=== PATIENT | female | born 1980 | race Caucasian/White ===

== ENCOUNTER 2016-08-20 19:12 | Emergency (ER) | payer OTHER ==
[~2016-08-20] VITALS: Ht 172.7 cm; Wt 70.3 kg
[2016-08-20] MEDS ORDERED: RHO (D) Immune Globulin 1500 Units IM ONE ×2 (20:30)
[2016-08-20 21:19] LABS: BASOPHILS % (AUTO) 0.7 % (0.0-2.0); EOSINOPHILS % (AUTO) 0.7 % (0.0-3.0); LYMPHOCYTES % (AUTO) 20.6 % (20.0-45.0); MEAN CORPUSCULAR HEMOGLOBIN 29.9 PG (27.0-31.0); MEAN CORPUSCULAR VOLUME 91 FL (80-99); MEAN PLATELET VOLUME 6.6 FL (6.5-10.1); MONOCYTES % (AUTO) 6.5 % (1.0-10.0); NEUTROPHILS % (AUTO) 71.5 % (45.0-75.0); PLATELET COUNT 207 K/UL (150-450); RED BLOOD COUNT 4.26 M/UL (4.20-5.40); RED CELL DISTRIBUTION WIDTH 11.9 % (11.6-14.8); WHITE BLOOD COUNT 8.5 K/UL (4.8-10.8)
[2016-08-21 00:54] VITALS: BP 138/83
--- NOTE | 2016-08-21 00:54 | Emergency Room Report ---
History of Present Illness General Chief Complaint: Complications Source: Patient Present Illness HPI The patient is a 36-year-old female who presented after increased vaginal bleeding. Patient had initially a small amount of bleeding yesterday which had increased to 2 similar to her. The patient has not been passing tissue. She denied dizziness or lightheadedness. Allergies: Coded Allergies: BACITRACIN (Verified Allergy, Unknown, 08/20/16) CINNAMON (Verified Allergy, Unknown, 08/20/16) COCONUT (Verified Allergy, Unknown, 08/20/16) METRONIDAZOLE (Verified Allergy, Unknown, 08/20/16) NEOMYCIN (Verified Allergy, Unknown, 08/20/16) Patient History Past Medical History: see triage record Last Menstrual Period: 06/17/2016 Now: Yes : 1 Para: 0 Reviewed Nursing Documentation: PMH: Agreed, PSxH: Agreed Nursing Documentation-PMH Past Medical History: No Stated History Review of Systems All Other Systems: negative except mentioned in HPI Physical Exam Vital Signs Date Time Temp Pulse Resp B/P Pulse Ox O2 Delivery O2 Flow Rate FiO2 08/20/16 19:29 98.2 127 16 138/83 98 Room Air Sp02 EP Interpretation: reviewed, normal General Appearance: normal inspection, well appearing, no apparent distress, alert, GCS 15 Head: normocephalic, atraumatic ENT: normal ENT inspection, hearing grossly normal, normal voice Neck: normal inspection, full range of motion, supple, no bony tend Respiratory: normal inspection, lungs clear, normal breath sounds, no respiratory distress, no retraction, no wheezing Cardiovascular #1: regular rate, rhythm, no edema Gastrointestinal: normal inspection, normal bowel sounds, non tender, soft, no guarding, no hernia Genitourinary: no CVA tenderness Musculoskeletal: normal inspection, back normal, normal range of motion Neurologic: normal inspection, alert, oriented x3, responsive, ship runner III-XII nml as tested, speech normal Psychiatric: normal inspection, judgement/insight normal, mood/affect normal Skin: normal inspection, normal color, no rash Medical Decision Making Diagnostic Impression: Primary Impression: Spontaneous ER Course Patient was noted to have a small amount of bleeding initially. Patient was noted to have ultrasound with some heterogeneous material in the uterus. There was no evidence of ectopic however the left ovary could not be visualized. Which cannot exclude ectopic. The there is no free fluid noted the abdomen. This may represent early The patient was advised of ultrasound findings. A quantitative hCG was noted to be markedly elevated. Given ultrasound findings the patient's clinical presentation as well as likely to be a spontaneous . Patient was noted to have the no pain in the had the been approximately 8 weeks . Patient was advised followup in 2 days for repeat quantitative hCG she is advised to return if she began having increased abdominal pain or dizziness or other concerns. Labs Test 08/20/16 19:57 08/20/16 20:41 Urine HCG, Qualitative Positive White Blood Count 8.5 K/UL (4.8-10.8) Red Blood Count 4.26 M/UL (4.20-5.40) Hemoglobin 12.7 G/DL (12.0-16.0) Hematocrit 38.6 % (37.0-47.0) Mean Corpuscular Volume 91 FL (80-99) Mean Corpuscular Hemoglobin 29.9 PG (27.0-31.0) Mean Corpuscular Hemoglobin Concent 33.0 G/DL (32.0-36.0) Red Cell Distribution Width 11.9 % (11.6-14.8) Platelet Count 207 K/UL (150-450) Mean Platelet Volume 6.6 FL (6.5-10.1) Neutrophils (%) (Auto) 71.5 % (45.0-75.0) Lymphocytes (%) (Auto) 20.6 % (20.0-45.0) Monocytes (%) (Auto) 6.5 % (1.0-10.0) Eosinophils (%) (Auto) 0.7 % (0.0-3.0) Basophils (%) (Auto) 0.7 % (0.0-2.0) Human Chorionic Gonadotropin, Quant 94425 mIU/mL Last Vital Signs Date Time Temp Pulse Resp B/P Pulse Ox O2 Delivery O2 Flow Rate FiO2 08/20/16 19:29 98.2 127 16 138/83 98 Room Air Status: improved Disposition: HOME, SELF-CARE Condition: Stable Patient Instructions: Miscarriage Esvin Winston Aug 21, 2016 00:54
--- NOTE | 2016-08-23 08:34 | Diagnostic Imaging Report ---
Indication: 36-year-old female with bleeding with reported beta hCG of 28,000. Technique: Transabdominal and endovaginal pelvic ultrasound. Comparison: None Findings: Uterus measures 9.6 x 5.8 cm. The endometrial echo complex is heterogeneous and thickened measuring up to 1.9 cm in thickness. No intrauterine is identified. Right ovary is poorly visualized grossly measuring 2.9 x 1.9 cm. Left ovary is not seen. There is no free pelvic fluid. Impression: Heterogeneous thickening of the endometrial echo complex measuring up to 1.9 cm. No intrauterine identified. Findings could represent a spontaneous with retained products of conception not excluded. In the absence of a documented intrauterine , occult ectopic cannot be excluded. Clinical/laboratory correlation recommended. Repeat imaging can be performed as clinically appropriate. The above report is concordant with preliminary reading by [facility].
== END 2016-08-21 00:56 | disposition home or self-care (01) ==
LOC: EMR 19:56
DX: O03.9 Complete or unspecified spontaneous abortion without complication (principal); O09.511 Supervision of elderly primigravida, first trimester; Z88.1 Allergy status to other antibiotic agents; Z91.018 Allergy to other foods
CPT/HCPCS: 36415; 76856; 81025; 84702; 85025; 86900; 86901; 99283

== ENCOUNTER 2017-10-04 15:25 | Inpatient (IN) | payer OTHER ==
[~2017-10-04] VITALS: Ht 172.7 cm; Wt 70.3 kg
[2017-10-04 15:35] VITALS: BP 132/74
--- NOTE | 2017-10-04 15:51 | Emergency Room Report ---
History of Present Illness General Chief Complaint: Abdominal Pain Source: Patient Present Illness HPI 37-year-old female, p/w epigastric abd pain nausea and vomiting for 10 days Patient states pain started gradually , localized to epigastric area, non radiating, burning in nature, intermittent. States that she has also had bilateral upper back pain. Also noticed that she's had some gross hematuria 10 days ago. But denies any dysuria. No relieving or exacerbating factors. denies chronic NSAID use. Pt reports n/v, 1 episode of nbnb vomiting per day, denies diarrhea. Denies black or bloody stools. Denies fever, chills. No hx of abdominal surgeries. No hx of endoscopies/colonoscopies. Patient states that she gave 2 months ago, uneventful , normal spontaneous vaginal delivery. No complications. Allergies: Coded Allergies: BACITRACIN (Verified Allergy, Unknown, 08/20/16) CINNAMON (Verified Allergy, Unknown, 08/20/16) COCONUT (Verified Allergy, Unknown, 08/20/16) METRONIDAZOLE (Verified Allergy, Unknown, 08/20/16) NEOMYCIN (Verified Allergy, Unknown, 08/20/16) Patient History Past Medical History: see triage record Past Surgical History: none Pertinent Family History: none Last Menstrual Period: 07/24/17 delivered the baby Reviewed Nursing Documentation: PMH: Agreed; PSxH: Agreed Nursing Documentation-PMH Past Medical History: No Stated History Review of Systems All Other Systems: negative except mentioned in HPI Physical Exam Vital Signs Date Time Temp Pulse Resp B/P (MAP) Pulse Ox O2 Delivery O2 Flow Rate FiO2 10/04/17 15:29 98.1 86 18 140/82 98 Room Air 98.1 Sp02 EP Interpretation: reviewed, normal General Appearance: alert, GCS 15, non-toxic, mild distress Head: normocephalic, atraumatic Eyes: bilateral eye normal inspection, bilateral eye PERRL, bilateral eye EOMI ENT: normal ENT inspection, normal pharynx, normal voice, moist mucus membranes Neck: normal inspection, full range of motion, supple Respiratory: normal inspection, lungs clear, normal breath sounds, no respiratory distress, no retraction, no wheezing, speaking full sentences, chest symmetrical Cardiovascular #1: normal inspection, regular rate, rhythm, normal capillary refill Cardiovascular #2: 2+ radial (R), 2+ radial (L) Gastrointestinal: other - Mild epigastric tenderness, Roger sign is negative, no CVA tenderness bilaterally. No bilateral lower quadrant tenderness. Musculoskeletal: normal inspection, back normal, normal range of motion, non- tender Neurologic: normal inspection, alert, oriented x3, responsive, motor strength/ tone normal, sensory intact, normal gait, speech normal Psychiatric: normal inspection, judgement/insight normal, memory normal Skin: normal inspection, normal color, no rash, warm/dry, well hydrated, normal turgor Medical Decision Making Diagnostic Impression: Primary Impression: Intractable nausea and vomiting Additional Impressions: Pancreatitis Acute gallstone pancreatitis ER Course 37-year-old female nausea vomiting and epigastric pain for 10 days Differential Diagnosis: Gastritis, gastroenteritis, cardiac, UTI/pyelo Abdomen is benign aside from mild epigastric tenderness. Plan: Basic labs, ua, ekg Pepcid, maalox, pain control, IVF CT abdopelvis ER course: Patient has remained stable during ED stay. Initial blood pressure was systolic 140, spontaneously improved to 130 She has remained awake and alert, not in acute distress, morphine was offered for her abdominal pain but patient refused She was given fluids Urine showing 2+ protein, also elevated LFTs, elevated lipase Possible diagnosis of pancreatitis versus preeclampsia I consulted with SENIOR ADULTS DIRECTOR doctor García: He said that preeclampsia/help syndrome is extremely with rare with this many weeks . Especially with the elevated lipase. Regardless it would mostly just be supportive management at this time. +gallstone pancreatitis Dr Boone made aware of patients case Also told Dr Jessica from GI Disposition: Patient is to be admitted to TELE DW Dr Jones Please note that this Emergency Department Report was dictated using [employer] enameling supervisor technology software, occasionally this can lead to erroneous entry secondary to interpretation by the dictation equipment EKG Diagnostic Results EP Interpretation: Yes Rate: normal Rhythm: NSR ST Segments: No acute changes ASA given to patient: No Laboratory Tests Test 10/04/17 15:37 10/04/17 15:45 Urine Color Brown Urine Appearance Slightly cloudy Urine pH 7 (4.5-8.0) Urine Specific [place] 1.005 (1.005-1.035) Urine Protein 2+ (NEGATIVE) H Urine Glucose (UA) Negative (NEGATIVE) Urine Ketones 4+ (NEGATIVE) H Urine Occult Blood 2+ (NEGATIVE) H Urine Nitrite Negative (NEGATIVE) Urine Bilirubin 3+ (NEGATIVE) H Urine Ictotest Positive Urine Urobilinogen 4 MG/DL (0.0-1.0) H Urine Leukocyte Esterase 2+ (NEGATIVE) H Urine RBC 0-2 /HPF (0 - 2) Urine WBC 2-4 /HPF (0 - 2) Urine Squamous Epithelial Cells Moderate /LPF (NONE/OCC) H Urine Bacteria Occasional /HPF (NONE) Urine HCG, Qualitative Negative (NEGATIVE) White Blood Count 6.7 K/UL (4.8-10.8) Red Blood Count 4.61 M/UL (4.20-5.40) Hemoglobin 13.1 G/DL (12.0-16.0) Hematocrit 40.1 % (37.0-47.0) Mean Corpuscular Volume 87 FL (80-99) Mean Corpuscular Hemoglobin 28.5 PG (27.0-31.0) Mean Corpuscular Hemoglobin Concent 32.8 G/DL (32.0-36.0) Red Cell Distribution Width 13.8 % (11.6-14.8) Platelet Count 236 K/UL (150-450) Mean Platelet Volume 8.0 FL (6.5-10.1) Neutrophils (%) (Auto) 73.7 % (45.0-75.0) Lymphocytes (%) (Auto) 18.6 % (20.0-45.0) L Monocytes (%) (Auto) 6.6 % (1.0-10.0) Eosinophils (%) (Auto) 0.4 % (0.0-3.0) Basophils (%) (Auto) 0.7 % (0.0-2.0) Sodium Level 137 MMOL/L (136-145) Potassium Level 3.8 MMOL/L (3.5-5.1) Chloride Level 102 MMOL/L (98-107) Carbon Dioxide Level 24 MMOL/L (21-32) Anion Gap 11 mmol/L (5-15) Blood Urea Nitrogen 7 mg/dL (7-18) Creatinine 0.8 MG/DL (0.55-1.30) Estimate Glomerular Filtration Rate > 60 mL/min (>60) Glucose Level 109 MG/DL (74-106) H Calcium Level 9.5 MG/DL (8.5-10.1) Total Bilirubin 7.4 MG/DL (0.2-1.0) H Direct Bilirubin 6.0 MG/DL (0.0-0.3) H Aspartate Amino Transferase (AST) 185 U/L (15-37) H Alanine Aminotransferase (ALT) 397 U/L (12-78) H Alkaline Phosphatase 251 U/L (46-116) H Total Protein 8.5 G/DL (6.4-8.2) H Albumin 3.7 G/DL (3.4-5.0) Globulin 4.8 g/dL Albumin/Globulin Ratio 0.8 (1.0-2.7) L Lipase 2804 U/L (73-393) H CT/MRI/US Diagnostic Results CT/MRI/US Diagnostic Results : Impression Sludge and stones are present in the gallbladder lumen. No gallbladder wall thickening or pericholecystic fluid. Sonographic Roger sign is negative. Dilated common bile duct measuring up to 8 mm. Mild diffusely increased hepatic echogenicity suggestive of diffuse hepatic steatosis. Spleen and kidneys are unremarkable. No free fluid Last Vital Signs Date Time Temp Pulse Resp B/P (MAP) Pulse Ox O2 Delivery O2 Flow Rate FiO2 10/04/17 15:29 98.1 86 18 140/82 98 Room Air 98.1 Disposition: ADMITTED INPATIENT Condition: Serious Patient Instructions: Abdominal Pain, Adult Reggie Edgar M.D. October 04, 2017 15:51
[2017-10-04 16:02] LABS: BASOPHILS % (AUTO) 0.7 % (0.0-2.0); EOSINOPHILS % (AUTO) 0.4 % (0.0-3.0); HEMATOCRIT 40.1 % (37.0-47.0); HEMOGLOBIN 13.1 G/DL (12.0-16.0); LYMPHOCYTES % (AUTO) 18.6 % (20.0-45.0); MEAN CORPUSCULAR VOLUME 87 FL (80-99); MONOCYTES % (AUTO) 6.6 % (1.0-10.0); NEUTROPHILS % (AUTO) 73.7 % (45.0-75.0); PLATELET COUNT 236 K/UL (150-450); RED BLOOD COUNT 4.61 M/UL (4.20-5.40); RED CELL DISTRIBUTION WIDTH 13.8 % (11.6-14.8); WHITE BLOOD COUNT 6.7 K/UL (4.8-10.8)
[2017-10-04 16:05] LABS: APPEARANCE,URINE SLIGHTLY CLOUDY; BILIRUBIN, URINE 3+ (NEGATIVE); COLOR,URINE BROWN; GLUCOSE, URINE (UA) NEGATIVE (NEGATIVE); KETONES,URINE 4+ (NEGATIVE); LEUKOCYTE ESTERASE ,URINE 2+ (NEGATIVE); NITRITE,URINE NEGATIVE (NEGATIVE); PH,URINE 7 (4.5-8.0); PROTEIN,URINE 2+ (NEGATIVE); UROBILINOGEN,URINE 4 MG/DL (0.0-1.0)
[2017-10-04 16:10] LABS: ANION GAP 11 mmol/L (5-15); BLOOD UREA NITROGEN 7 mg/dL (7-18); CALCIUM 9.5 MG/DL (8.5-10.1); CARBON DIOXIDE 24 MMOL/L (21-32); CHLORIDE 102 MMOL/L (98-107); CREATININE 0.8 MG/DL (0.55-1.30); POTASSIUM 3.8 MMOL/L (3.5-5.1); SODIUM 137 MMOL/L (136-145)
[2017-10-04 16:20] LABS: ALANINE AMINOTRANSFERASE 397 U/L (12-78); ALBUMIN 3.7 G/DL (3.4-5.0); ALBUMIN/GLOBULIN RATIO 0.8 (1.0-2.7); ALKALINE PHOSPHATASE 251 U/L (46-116); ASPARTATE AMINO TRANSFERASE 185 U/L (15-37); BILIRUBIN,TOTAL 7.4 MG/DL (0.2-1.0)
[2017-10-04] MEDS ORDERED: Morphine Sulfate 4mg/ml Inj ONE (16:27)
[2017-10-04] MEDS ORDERED: Morphine Sulfate 4mg/ml Inj IVP ONE (16:30)
[2017-10-04] MEDS ORDERED: Labetalol 5mg/ml 20ml vial IV ONE (16:45)
[2017-10-04 16:59] VITALS: BP 118/61
[2017-10-04] MEDS ORDERED: YASMIN 28 TABL1 EACH ORAL (17:23)
[2017-10-04] MEDS ORDERED: ADVIL200 M2 ORAL (17:23)
--- NOTE | 2017-10-04 18:33 | Consultation ---
History of Present Illness General Date patient seen: October 04, 2017 Chief Complaint: Abdominal Pain Reason for Consultation: gallstone pancreatitis Present Illness HPI 37 year old otherwise healthy female who is 10 weeks post presented to ED with complaints of worsening abdominal pain. States that she has had some abdominal discomfort since delivery but over the past few days she has noted some worsening upper abdominal pain. pain currently epigastric with radiation to the upper back. pain cramping can 8/10 at times. came in to ED for evaluation today and noted to have elevated t bili/d bili as well as elevated lipase indicative of likely gallstone pancreatitis. otherwise well and no complaints. baby doing okay and at home with grandmother and aunt. surgery called to evaluate for abdominal pain/gallstone pancreatitis. Allergies: Coded Allergies: BACITRACIN (Verified Allergy, Unknown, 08/20/16) CINNAMON (Verified Allergy, Unknown, 08/20/16) COCONUT (Verified Allergy, Unknown, 08/20/16) METRONIDAZOLE (Verified Allergy, Unknown, 08/20/16) NEOMYCIN (Verified Allergy, Unknown, 08/20/16) Patient History History Provided By: Patient, Medical Record, PMD Healthcare decision maker Resuscitation status Advanced Directive on File Past Medical/Surgical History Past Medical/Surgical History: (1) Acute gallstone pancreatitis (2) Missed (3) Spontaneous (4) Preeclampsia (5) Pancreatitis (6) Intractable nausea and vomiting Review of Systems Constitutional: Denies: no symptoms, see HPI, chills, sweats, fever, malaise, weakness, other Eye: Denies: no symptoms, see HPI, eye pain, blurred vision, tearing, double vision, nose pain, nose congestion, acuity changes, discharge, other ENT: Denies: no symptoms, see HPI, ear pain, ear discharge, nose pain, nose congestion, throat pain, throat swelling, mouth pain, hearing loss, nasal discharge, other Respiratory: Denies: no symptoms, see HPI, cough, orthopnea, shortness of breath, stridor, wheezing, VALLE, sputum, other Cardiovascular: Denies: no symptoms, see HPI, chest pain, edema, palpitations, syncope, PND, other Gastrointestinal: Reports: abdominal pain Genitourinary: Denies: no symptoms, see HPI, discharge, dysuria, frequency, hematuria, pain, retention, incontinence, urgency, vag bleed/dc, other Musculoskeletal: Reports: back pain Skin: Denies: no symptoms, see HPI, rash, change in color, change in hair/nails , dryness, lesions, other Psychiatric: Denies: no symptoms, see HPI, prior hx, anxiety, depressed feelings, emotional problems, SI, HI, hallucinations, other Neurological: Denies: no symptoms, see HPI, headache, numbness, paresthesia, seizure, tingling, tremors, focal weakness, syncope, dizziness, other Endocrine: Denies: no symptoms, see HPI, excessive sweating, flushing, intolerance to temperature, increased thirst, increased urine, unexplained weight loss, other Hematologic/Lymphatic: Denies: no symptoms, see HPI, anemia, blood clots, easy bleeding, easy bruising, swollen glands, diathesis, other Physical Exam General Appearance: WD/WN, no apparent distress, alert Lines, tubes and drains: peripheral HEENT: mucous membranes moist, PERRL Neck: non-tender, normal alignment Respiratory/Chest: lungs clear, normal breath sounds, no respiratory distress, no accessory muscle use Cardiovascular/Chest: normal peripheral pulses, normal rate, regular rhythm Abdomen: normal bowel sounds, non tender, soft, no organomegaly, no mass Extremities: normal range of motion, non-tender Skin Exam: normal pigmentation Neurologic: alert, oriented x 3 Last 24 Hour Vital Signs Date Time Temp Pulse Resp B/P (MAP) Pulse Ox O2 Delivery O2 Flow Rate FiO2 10/04/17 16:59 98.6 81 18 118/61 98 Room Air 98.6 10/04/17 16:43 78 135/75 10/04/17 16:29 98.1 10/04/17 15:35 98.1 81 18 132/74 98 Room Air 98.1 10/04/17 15:29 98.1 86 18 140/82 98 Room Air 98.1 Laboratory Tests Test 10/04/17 15:37 10/04/17 15:45 Urine Color Brown Urine Appearance Slightly cloudy Urine pH 7 (4.5-8.0) Urine Specific [place] 1.005 (1.005-1.035) Urine Protein 2+ (NEGATIVE) H Urine Glucose (UA) Negative (NEGATIVE) Urine Ketones 4+ (NEGATIVE) H Urine Occult Blood 2+ (NEGATIVE) H Urine Nitrite Negative (NEGATIVE) Urine Bilirubin 3+ (NEGATIVE) H Urine Ictotest Positive Urine Urobilinogen 4 MG/DL (0.0-1.0) H Urine Leukocyte Esterase 2+ (NEGATIVE) H Urine RBC 0-2 /HPF (0 - 2) Urine WBC 2-4 /HPF (0 - 2) Urine Squamous Epithelial Cells Moderate /LPF (NONE/OCC) H Urine Bacteria Occasional /HPF (NONE) Urine HCG, Qualitative Negative (NEGATIVE) White Blood Count 6.7 K/UL (4.8-10.8) Red Blood Count 4.61 M/UL (4.20-5.40) Hemoglobin 13.1 G/DL (12.0-16.0) Hematocrit 40.1 % (37.0-47.0) Mean Corpuscular Volume 87 FL (80-99) Mean Corpuscular Hemoglobin 28.5 PG (27.0-31.0) Mean Corpuscular Hemoglobin Concent 32.8 G/DL (32.0-36.0) Red Cell Distribution Width 13.8 % (11.6-14.8) Platelet Count 236 K/UL (150-450) Mean Platelet Volume 8.0 FL (6.5-10.1) Neutrophils (%) (Auto) 73.7 % (45.0-75.0) Lymphocytes (%) (Auto) 18.6 % (20.0-45.0) L Monocytes (%) (Auto) 6.6 % (1.0-10.0) Eosinophils (%) (Auto) 0.4 % (0.0-3.0) Basophils (%) (Auto) 0.7 % (0.0-2.0) Sodium Level 137 MMOL/L (136-145) Potassium Level 3.8 MMOL/L (3.5-5.1) Chloride Level 102 MMOL/L (98-107) Carbon Dioxide Level 24 MMOL/L (21-32) Anion Gap 11 mmol/L (5-15) Blood Urea Nitrogen 7 mg/dL (7-18) Creatinine 0.8 MG/DL (0.55-1.30) Estimat Glomerular Filtration Rate > 60 mL/min (>60) Glucose Level 109 MG/DL (74-106) H Calcium Level 9.5 MG/DL (8.5-10.1) Total Bilirubin 7.4 MG/DL (0.2-1.0) H Direct Bilirubin 6.0 MG/DL (0.0-0.3) H Aspartate Amino Transf (AST/SGOT) 185 U/L (15-37) H Alanine Aminotransferase (ALT/SGPT) 397 U/L (12-78) H Alkaline Phosphatase 251 U/L (46-116) H Total Protein 8.5 G/DL (6.4-8.2) H Albumin 3.7 G/DL (3.4-5.0) Globulin 4.8 g/dL Albumin/Globulin Ratio 0.8 (1.0-2.7) L Lipase 2804 U/L (73-393) H Height (Feet): 5 Height (Inches): 8.00 Weight (Pounds): 155 Assessment/Plan Problem List: (1) Acute gallstone pancreatitis Assessment & Plan: 37 year old female with acute gallstone pancreatitis. afebrile, HD stable, no leukocytosis, elevated total and direct bilirubin, elevated LFT's and lipase. currently pain much improved. pending final radiological read -NPO -IV fluids -pending final radiological read -GI to evaluate for choledocholithiasis and possible need for ERCP -trend labs -recommend laparoscopic cholecystectomy during this admission once resolved. thank you for this consultation. will follow with recs. ICD Codes: K85.10 - Biliary acute pancreatitis without necrosis or infection SNOMED: [id number] Status: stable Espinoza Boone October 04, 2017 18:32
[2017-10-04 19:00] VITALS: BP 126/72
[2017-10-04 20:00] VITALS: BP 123/70
[2017-10-04] MEDS ORDERED: Mylanta II UD 30ml ORAL PRN (20:45)
[2017-10-04] MEDS ORDERED: NS w/KCl 20mEq 1,000 ML IV SCH (22:00)
[2017-10-04] MEDS ORDERED: Acetaminophen 500mg (ES) tab ORAL PRN (22:00)
[2017-10-04] MEDS: Piperacillin/Tazobactam 3.375 GM in D5W 110 ML IVPB SCH (23:42)
[2017-10-05] VITALS: BP_SYST 111; BP_SYST 123; BP_DIAS 61; BP_DIAS 70
[2017-10-05 04:00] VITALS: BP 114/68
[2017-10-05] MEDS: Piperacillin/Tazobactam 3.375 GM in D5W 110 ML IVPB SCH ×3 (05:26→23:23)
[2017-10-05 08:00] VITALS: BP 112/69
[2017-10-05 08:33] LABS: BASOPHILS % (AUTO) 0.7 % (0.0-2.0); EOSINOPHILS % (AUTO) 0.7 % (0.0-3.0); HEMATOCRIT 35.8 % (37.0-47.0); HEMOGLOBIN 11.8 G/DL (12.0-16.0); LYMPHOCYTES % (AUTO) 29.5 % (20.0-45.0); MEAN CORPUSCULAR VOLUME 88 FL (80-99); MONOCYTES % (AUTO) 6.2 % (1.0-10.0); NEUTROPHILS % (AUTO) 62.9 % (45.0-75.0); PLATELET COUNT 171 K/UL (150-450); RED BLOOD COUNT 4.05 M/UL (4.20-5.40); RED CELL DISTRIBUTION WIDTH 13.8 % (11.6-14.8); WHITE BLOOD COUNT 4.7 K/UL (4.8-10.8)
[2017-10-05 08:50] LABS: INR 0.9 (0.9-1.1)
[2017-10-05 09:12] LABS: ALANINE AMINOTRANSFERASE 291 U/L (12-78); ALBUMIN 2.9 G/DL (3.4-5.0); ALBUMIN/GLOBULIN RATIO 0.7 (1.0-2.7); ALKALINE PHOSPHATASE 205 U/L (46-116); AMYLASE 121 U/L (25-115); ANION GAP 10 mmol/L (5-15); ASPARTATE AMINO TRANSFERASE 102 U/L (15-37); BILIRUBIN,TOTAL 2.6 MG/DL (0.2-1.0); BLOOD UREA NITROGEN 9 mg/dL (7-18); CALCIUM 8.6 MG/DL (8.5-10.1); CARBON DIOXIDE 23 MMOL/L (21-32); CHLORIDE 105 MMOL/L (98-107); CHOLESTEROL 233 MG/DL (< 200); HDL CHOLESTEROL 116 MG/DL (40-60); SODIUM 138 MMOL/L (136-145); TRIGLYCERIDES 126 MG/DL (30-150)
[2017-10-05 09:14] LABS: BILIRUBIN,DIRECT 1.2 MG/DL (0.0-0.3)
[2017-10-05 09:37] LABS: PHOSPHORUS 4.2 MG/DL (2.5-4.9)
--- NOTE | 2017-10-05 10:33 | GI Initial Consult Note ---
History of Present Illness General Date patient seen: October 05, 2017 Time patient seen: 10:26 Reason for Hospitalization: Abdominal Pain Referring physician: SANDI NICHOLS Reason for Consultation: gallstone pancreatitis Present Illness HPI 37-year-old female, p/w epigastric abd pain nausea and vomiting for 10 days. Patient states pain started gradually, localized to epigastric area, non radiating, burning in nature, intermittent. States that she has also had bilateral upper back pain. Also noticed that she's had some gross hematuria 10 days ago. But denies any dysuria. No relieving or exacerbating factors. denies chronic NSAID use. Pt reports n/v, 1 episode of nbnb vomiting per day, denies diarrhea. Denies black or bloody stools. GI consulted for possible gallstone pancreatitis. Pt seen, awake A&Ox4 NAD with no active s/sx of N/V/D. Denies any pain at this time. Denies any significant medical history. Denies any use of ETOH, tobacco or drug use. Labs reviewed, presents with anemia, abnormal LFTs and elevated lipase. Abdominal U/S taken, results pending. No hx of abdominal surgeries. No hx of endoscopies/colonoscopies. Patient states that she gave 2 months ago, uneventful , normal spontaneous vaginal delivery. No complications. Med list reviewed/reconciled: Yes Allergies: Coded Allergies: BACITRACIN (Verified Allergy, Unknown, 08/20/16) CINNAMON (Verified Allergy, Unknown, 08/20/16) COCONUT (Verified Allergy, Unknown, 08/20/16) METRONIDAZOLE (Verified Allergy, Unknown, 08/20/16) NEOMYCIN (Verified Allergy, Unknown, 08/20/16) Patient History History Provided By: Patient, Medical Record PM Narrative Allergies: Coded Allergies: BACITRACIN (Verified Allergy, Unknown, 08/20/16) CINNAMON (Verified Allergy, Unknown, 08/20/16) COCONUT (Verified Allergy, Unknown, 08/20/16) METRONIDAZOLE (Verified Allergy, Unknown, 08/20/16) NEOMYCIN (Verified Allergy, Unknown, 08/20/16) Patient History Past Medical History: see triage record Past Surgical History: none Pertinent Family History: none Last Menstrual Period: 07/24/17 delivered the baby Reviewed Nursing Documentation: PMH: Agreed; PSxH: Agreed Nursing Documentation-PMH Past Medical History: No Stated History Social History: Denies: smoking, alcohol use, drug use, other Review of Systems All Other Systems: negative except mentioned in HPI Physical Exam Vital Signs Date Time Temp Pulse Resp B/P (MAP) Pulse Ox O2 Delivery O2 Flow Rate FiO2 10/04/17 15:29 98.1 86 18 140/82 98 Room Air 98.1 Sp02 EP Interpretation: reviewed, normal Labs Laboratory Tests Test 10/04/17 15:37 10/04/17 15:45 10/05/17 08:05 Urine Color Brown Urine Appearance Slightly cloudy Urine pH 7 (4.5-8.0) Urine Specific [place] 1.005 (1.005-1.035) Urine Protein 2+ (NEGATIVE) H Urine Glucose (UA) Negative (NEGATIVE) Urine Ketones 4+ (NEGATIVE) H Urine Occult Blood 2+ (NEGATIVE) H Urine Nitrite Negative (NEGATIVE) Urine Bilirubin 3+ (NEGATIVE) H Urine Ictotest Positive Urine Urobilinogen 4 MG/DL (0.0-1.0) H Urine Leukocyte Esterase 2+ (NEGATIVE) H Urine RBC 0-2 /HPF (0 - 2) Urine WBC 2-4 /HPF (0 - 2) Urine Squamous Epithelial Cells Moderate /LPF (NONE/OCC) H Urine Bacteria Occasional /HPF (NONE) Urine HCG, Qualitative Negative (NEGATIVE) White Blood Count 6.7 K/UL (4.8-10.8) 4.7 K/UL (4.8-10.8) L Red Blood Count 4.61 M/UL (4.20-5.40) 4.05 M/UL (4.20-5.40) L Hemoglobin 13.1 G/DL (12.0-16.0) 11.8 G/DL (12.0-16.0) L Hematocrit 40.1 % (37.0-47.0) 35.8 % (37.0-47.0) L Mean Corpuscular Volume 87 FL (80-99) 88 FL (80-99) Mean Corpuscular Hemoglobin 28.5 PG (27.0-31.0) 29.2 PG (27.0-31.0) Mean Corpuscular Hemoglobin Concent 32.8 G/DL (32.0-36.0) 33.1 G/DL (32.0-36.0) Red Cell Distribution Width 13.8 % (11.6-14.8) 13.8 % (11.6-14.8) Platelet Count 236 K/UL (150-450) 171 K/UL (150-450) Mean Platelet Volume 8.0 FL (6.5-10.1) 7.8 FL (6.5-10.1) Neutrophils (%) (Auto) 73.7 % (45.0-75.0) 62.9 % (45.0-75.0) Lymphocytes (%) (Auto) 18.6 % (20.0-45.0) L 29.5 % (20.0-45.0) Monocytes (%) (Auto) 6.6 % (1.0-10.0) 6.2 % (1.0-10.0) Eosinophils (%) (Auto) 0.4 % (0.0-3.0) 0.7 % (0.0-3.0) Basophils (%) (Auto) 0.7 % (0.0-2.0) 0.7 % (0.0-2.0) Sodium Level 137 MMOL/L (136-145) 138 MMOL/L (136-145) Potassium Level 3.8 MMOL/L (3.5-5.1) 4.0 MMOL/L (3.5-5.1) Chloride Level 102 MMOL/L (98-107) 105 MMOL/L (98-107) Carbon Dioxide Level 24 MMOL/L (21-32) 23 MMOL/L (21-32) Anion Gap 11 mmol/L (5-15) 10 mmol/L (5-15) Blood Urea Nitrogen 7 mg/dL (7-18) 9 mg/dL (7-18) Creatinine 0.8 MG/DL (0.55-1.30) 1.0 MG/DL (0.55-1.30) Estimat Glomerular Filtration Rate > 60 mL/min (>60) > 60 mL/min (>60) Glucose Level 109 MG/DL (74-106) H 94 MG/DL (74-106) Calcium Level 9.5 MG/DL (8.5-10.1) 8.6 MG/DL (8.5-10.1) Total Bilirubin 7.4 MG/DL (0.2-1.0) H 2.6 MG/DL (0.2-1.0) H Direct Bilirubin 6.0 MG/DL (0.0-0.3) H 1.2 MG/DL (0.0-0.3) H Aspartate Amino Transf (AST/SGOT) 185 U/L (15-37) H 102 U/L (15-37) H Alanine Aminotransferase (ALT/SGPT) 397 U/L (12-78) H 291 U/L (12-78) H Alkaline Phosphatase 251 U/L (46-116) H 205 U/L (46-116) H Total Protein 8.5 G/DL (6.4-8.2) H 6.9 G/DL (6.4-8.2) Albumin 3.7 G/DL (3.4-5.0) 2.9 G/DL (3.4-5.0) L Globulin 4.8 g/dL 4.0 g/dL Albumin/Globulin Ratio 0.8 (1.0-2.7) L 0.7 (1.0-2.7) L Lipase 2804 U/L (73-393) H 594 U/L (73-393) H Prothrombin Time 9.6 SEC (9.30-11.50) Prothromb Time International Ratio 0.9 (0.9-1.1) Activated Partial Thromboplast Time 28 SEC (23-33) Uric Acid 3.8 MG/DL (2.6-7.2) Phosphorus Level 4.2 MG/DL (2.5-4.9) Magnesium Level 2.0 MG/DL (1.8-2.4) Pro-B-Type Natriuretic Peptide 181 pg/mL (0-125) H Triglycerides Level 126 MG/DL (30-150) Cholesterol Level 233 MG/DL (< 200) H LDL Cholesterol 82 mg/dL (<100) HDL Cholesterol 116 MG/DL (40-60) H Cholesterol/HDL Ratio 2.0 (3.3-4.4) L Amylase Level 121 U/L (25-115) H Thyroid Stimulating Hormone (TSH) 1.212 uiU/mL (0.358-3.740) General Appearance: well appearing, no apparent distress, alert Head: normocephalic EENT: PERRL/EOMI, normal ENT inspection Neck: supple Respiratory: normal breath sounds, no respiratory distress Cardiovascular: normal rate Gastrointestinal: normal inspection, non tender, soft, normal bowel sounds, non -distended Rectal: deferred Genitourinary: no CVA tenderness Musculoskeletal: normal inspection, back normal Neurologic: normal inspection, alert, oriented x3, responsive Psychiatric: normal inspection, judgement/insight normal, memory normal Skin: normal inspection, normal color, no rash, warm/dry, palpation normal, well hydrated Lymphatic: normal inspection, no adenopathy Current Medications Current Medications Medications (Trade) Dose Ordered Sig/Jacob Route PRN Reason Start Time Stop Time Status Last Admin Dose Admin Acetaminophen (Tylenol) 500 mg Q6HR PRN ORAL Mild Pain/Temp > 100.5 10/04/17 22:00 11/03/17 21:59 Al Hydroxide/Mg Hydroxide (Mylanta II) 30 ml Q6H PRN ORAL dyspepsia 10/04/17 20:45 11/03/17 20:44 Dextrose (Dextrose 50%) 25 ml STAT PRN IV Hypoglycemia 10/04/17 20:45 11/03/17 20:44 Dextrose (Dextrose 50%) 25 ml STAT PRN IV Hypoglycemia 10/04/17 22:00 11/03/17 21:59 Dextrose (Dextrose 50%) 50 ml STAT PRN IV Hypoglycemia 10/04/17 20:45 11/03/17 20:44 Famotidine (Pepcid I.v.) 20 mg Q12HR IVP 10/04/17 22:00 11/03/17 21:59 10/05/17 08:22 Ondansetron HCl (Zofran) 4 mg Q6H PRN IVP Nausea & Vomiting 10/04/17 20:45 11/03/17 20:44 Piperacillin Sod/ Tazobactam Sod 3.375 gm/Dextrose 110 ml @ 27.5 mls/hr EVERY 8 HOURS IVPB 10/04/17 22:30 10/09/17 22:29 10/05/17 05:26 Sodium Chloride 1,000 ml @ 80 mls/hr [id number] IV 10/04/17 22:57 11/03/17 22:56 10/04/17 22:22 GI: Plan Problems: (1) Acute gallstone pancreatitis (2) Pancreatitis (3) Intractable nausea and vomiting Plan possible ERCP for choledocholithiasis and possible need for ERCP. pending abdominal U/S trend LFTs, lipase pain mgmt maintain NPO + IVFs fu labs Discussed with Dr. Jessica. Thank you for this patient referral, we will follow. The patient was seen and examined at bedside and all new and available data was reviewed in the patients chart. I agree with the above findings, impression and plan. (Patient seen earlier today. Signature stamp does not reflect patient encounter time.). - MD Barb Narvaez Anh Julius Horne October 05, 2017 10:33
[2017-10-05 12:00] VITALS: BP 110/72
--- NOTE | 2017-10-05 15:06 | General Surgery Progress Note ---
General Surgery-Progress Note Subjective Symptoms: improved, pain absent, passing flatus Additional Comments no acute events pain resolved. no n/v/f/c. comfortable. Objective Last 24 Hour Vital Signs Date Time Temp Pulse Resp B/P (MAP) Pulse Ox O2 Delivery O2 Flow Rate FiO2 10/05/17 12:00 97.7 68 18 110/72 97 Room Air 97.7 10/05/17 11:40 81 10/05/17 08:00 97.7 72 18 112/69 97 Room Air 97.7 10/05/17 07:26 63 10/05/17 04:00 97.7 84 18 114/68 97 Room Air 97.7 10/05/17 04:00 66 10/05/17 00:00 73 10/05/17 00:00 97.7 74 18 111/61 96 Room Air 97.7 10/04/17 21:07 71 10/04/17 20:00 99.0 80 20 123/70 99 Room Air 99.0 10/04/17 19:40 99.0 81 18 126/72 100 Room Air 99.0 10/04/17 19:00 99.0 81 18 126/72 100 Room Air 99.0 10/04/17 16:59 98.6 81 18 118/61 98 Room Air 98.6 10/04/17 16:43 78 135/75 10/04/17 16:29 98.1 10/04/17 15:35 98.1 81 18 132/74 98 Room Air 98.1 10/04/17 15:29 98.1 86 18 140/82 98 Room Air 98.1 I&O Intake and Output 10/04/17 10/05/17 19:00 07:00 Intake Total 80 ml Balance 80 ml Intake IV Total 80 ml # Voids 1 Drains: none Cardiovascular: RSR Respiratory: clear Abdomen: soft, flat, non-tender, present bowel sounds Extremities: no edema, no tenderness, no cyanosis Laboratory Tests Test 10/04/17 15:37 10/04/17 15:45 10/05/17 08:05 Urine Color Brown Urine Appearance Slightly cloudy Urine pH 7 (4.5-8.0) Urine Specific [place] 1.005 (1.005-1.035) Urine Protein 2+ (NEGATIVE) H Urine Glucose (UA) Negative (NEGATIVE) Urine Ketones 4+ (NEGATIVE) H Urine Occult Blood 2+ (NEGATIVE) H Urine Nitrite Negative (NEGATIVE) Urine Bilirubin 3+ (NEGATIVE) H Urine Ictotest Positive Urine Urobilinogen 4 MG/DL (0.0-1.0) H Urine Leukocyte Esterase 2+ (NEGATIVE) H Urine RBC 0-2 /HPF (0 - 2) Urine WBC 2-4 /HPF (0 - 2) Urine Squamous Epithelial Cells Moderate /LPF (NONE/OCC) H Urine Bacteria Occasional /HPF (NONE) Urine HCG, Qualitative Negative (NEGATIVE) White Blood Count 6.7 K/UL (4.8-10.8) 4.7 K/UL (4.8-10.8) L Red Blood Count 4.61 M/UL (4.20-5.40) 4.05 M/UL (4.20-5.40) L Hemoglobin 13.1 G/DL (12.0-16.0) 11.8 G/DL (12.0-16.0) L Hematocrit 40.1 % (37.0-47.0) 35.8 % (37.0-47.0) L Mean Corpuscular Volume 87 FL (80-99) 88 FL (80-99) Mean Corpuscular Hemoglobin 28.5 PG (27.0-31.0) 29.2 PG (27.0-31.0) Mean Corpuscular Hemoglobin Concent 32.8 G/DL (32.0-36.0) 33.1 G/DL (32.0-36.0) Red Cell Distribution Width 13.8 % (11.6-14.8) 13.8 % (11.6-14.8) Platelet Count 236 K/UL (150-450) 171 K/UL (150-450) Mean Platelet Volume 8.0 FL (6.5-10.1) 7.8 FL (6.5-10.1) Neutrophils (%) (Auto) 73.7 % (45.0-75.0) 62.9 % (45.0-75.0) Lymphocytes (%) (Auto) 18.6 % (20.0-45.0) L 29.5 % (20.0-45.0) Monocytes (%) (Auto) 6.6 % (1.0-10.0) 6.2 % (1.0-10.0) Eosinophils (%) (Auto) 0.4 % (0.0-3.0) 0.7 % (0.0-3.0) Basophils (%) (Auto) 0.7 % (0.0-2.0) 0.7 % (0.0-2.0) Sodium Level 137 MMOL/L (136-145) 138 MMOL/L (136-145) Potassium Level 3.8 MMOL/L (3.5-5.1) 4.0 MMOL/L (3.5-5.1) Chloride Level 102 MMOL/L (98-107) 105 MMOL/L (98-107) Carbon Dioxide Level 24 MMOL/L (21-32) 23 MMOL/L (21-32) Anion Gap 11 mmol/L (5-15) 10 mmol/L (5-15) Blood Urea Nitrogen 7 mg/dL (7-18) 9 mg/dL (7-18) Creatinine 0.8 MG/DL (0.55-1.30) 1.0 MG/DL (0.55-1.30) Estimat Glomerular Filtration Rate > 60 mL/min (>60) > 60 mL/min (>60) Glucose Level 109 MG/DL (74-106) H 94 MG/DL (74-106) Calcium Level 9.5 MG/DL (8.5-10.1) 8.6 MG/DL (8.5-10.1) Total Bilirubin 7.4 MG/DL (0.2-1.0) H 2.6 MG/DL (0.2-1.0) H Direct Bilirubin 6.0 MG/DL (0.0-0.3) H 1.2 MG/DL (0.0-0.3) H Aspartate Amino Transf (AST/SGOT) 185 U/L (15-37) H 102 U/L (15-37) H Alanine Aminotransferase (ALT/SGPT) 397 U/L (12-78) H 291 U/L (12-78) H Alkaline Phosphatase 251 U/L (46-116) H 205 U/L (46-116) H Total Protein 8.5 G/DL (6.4-8.2) H 6.9 G/DL (6.4-8.2) Albumin 3.7 G/DL (3.4-5.0) 2.9 G/DL (3.4-5.0) L Globulin 4.8 g/dL 4.0 g/dL Albumin/Globulin Ratio 0.8 (1.0-2.7) L 0.7 (1.0-2.7) L Lipase 2804 U/L (73-393) H 594 U/L (73-393) H Prothrombin Time 9.6 SEC (9.30-11.50) Prothromb Time International Ratio 0.9 (0.9-1.1) Activated Partial Thromboplast Time 28 SEC (23-33) Uric Acid 3.8 MG/DL (2.6-7.2) Phosphorus Level 4.2 MG/DL (2.5-4.9) Magnesium Level 2.0 MG/DL (1.8-2.4) Pro-B-Type Natriuretic Peptide 181 pg/mL (0-125) H Triglycerides Level 126 MG/DL (30-150) Cholesterol Level 233 MG/DL (< 200) H LDL Cholesterol 82 mg/dL (<100) HDL Cholesterol 116 MG/DL (40-60) H Cholesterol/HDL Ratio 2.0 (3.3-4.4) L Amylase Level 121 U/L (25-115) H Thyroid Stimulating Hormone (TSH) 1.212 uiU/mL (0.358-3.740) Plan Problems: (1) Acute gallstone pancreatitis Assessment & Plan: 37 year old female with acute gallstone pancreatitis. afebrile, HD stable, no leukocytosis, elevated total and direct bilirubin, elevated LFT's and lipase. labs improving. pain resolved. potentially passed stone. MRCP to evaluate for choledocholithiasis. If improved and no need for ERCP may proceed with lap rosalee tomorrow -NPO -IV fluids -trend labs -recommend laparoscopic cholecystectomy during this admission once resolved. thank you for this consultation. will follow with recs. Espinoza Boone October 05, 2017 15:06
[2017-10-05 16:05] VITALS: BP 106/69
--- NOTE | 2017-10-05 16:25 | Cardiology Report ---
APPROVED REPORT EKG Measurement Heart [id number] Normal sinus rhythm with sinus arrhythmia Possible Left atrial enlargement Borderline ECG
--- NOTE | 2017-10-05 19:30 | Diagnostic Imaging Report ---
Indication: Cholelithiasis Technique: MRI of the abdomen was performed in a 1.5 Katerina magnet. Pulse sequences obtained include coronal and axial T2 single shot fast spin echo breathhold and respiratory gated coronal T2 3-D M.R.C.P.; this data set was displayed in different projections or MIPs. In addition, multiple coronal oblique thin T2 weighted, fat saturated SE sequences obtained through the CBD. Comparison: Concurrent abdominal sonogram Findings: Please note that patient has 2 medical record numbers in the system. The MRN is on a different medical record number than the abdominal ultrasound. The abdominal ultrasound is unremarkable recommended number [id number]. Patient name and birthdates are similar across both medical record numbers. There is cholelithiasis with multiple gallstones layering in a nondistended gallbladder. The gallbladder wall measures between 2 to 2.7 mm. There is interval decrease caliber of the common bile duct compared to the prior ultrasound. The common bile duct measures at most 5 to 6 mm on this exam (Previously measured 8 mm on the ultrasound). There is mild tapering of signal in the expected region of the sphincter of Oddi. No definite intraluminal filling defect or meniscus sign is seen to suggest choledocholithiasis. Pancreas is slightly prominent, possibly consistent with given history of pancreatitis. No focal hepatic mass lesion is appreciated. No evidence of hepatic steatosis, chemical shift imaging. Spleen, adrenal glands and kidneys grossly unremarkable. The appendix is normal. No evidence of bowel obstruction. Imaged lung bases are clear. Heart size within normal limits. IMPRESSION: Please note medical record number discrepancy as detailed above. IT notified to merge the medical record numbers. Cholelithiasis. No definite evidence to suggest acute cholecystitis. Common bile duct measures at most 5 to 6 mm on this exam (previously measured 8 mm on the ultrasound). There is mild tapering of signal in the expected region of the sphincter of Oddi. No definite intraluminal filling defect or meniscus sign is seen to suggest choledocholithiasis. Mildly prominent pancreas likely related to known pancreatitis.
--- NOTE | 2017-10-05 19:41 | Pre-Procedure Note/Attestation ---
Pre-Procedure Note/Attestation Complete Prior to Procedure Planned Procedure: not applicable Procedure Narrative: laparoscopic cholecystectomy, possible open, possible intraoperative cholangiogram Indications for Procedure Pre-Operative Diagnosis: gallstone pancreatitis Attestation I attest that I discussed the nature of the procedure; its benefits; risks and complications; and alternatives (and the risks and benefits of such alternatives ), prior to the procedure, with the patient (or the patient's legal claim representative). I attest that, if there was a reasonable possibility of needing a blood transfusion, the patient (or the patient's legal claim representative) was given the [facility] standardized written summary, pursuant to the [place] Blood Safety Act ([place] Health and Safety Code # 1645, as amended). I attest that I re-evaluated the patient just prior to the surgery and that there has been no change in the patient's H&P, except as documented below: Espinoza Boone October 05, 2017 19:41
[2017-10-05 20:00] VITALS: BP 118/75
[2017-10-05] MEDS: NS w/KCl 20mEq 1,000 ML IV SCH (21:26)
[2017-10-06] VITALS (14 sets, daily range): BP systolic 104–154; BP diastolic 65–83
[2017-10-06] MEDS: NS w/KCl 20mEq 1,000 ML IV SCH ×3 (04:58→21:26)
[2017-10-06] MEDS: Piperacillin/Tazobactam 3.375 GM in D5W 110 ML IVPB SCH ×4 (04:58→23:26)
[2017-10-06 08:53] LABS: BASOPHILS % (AUTO) 0.7 % (0.0-2.0); HEMATOCRIT 40.6 % (37.0-47.0); HEMOGLOBIN 13.1 G/DL (12.0-16.0); LYMPHOCYTES % (AUTO) 30.5 % (20.0-45.0); MEAN CORPUSCULAR VOLUME 89 FL (80-99); MONOCYTES % (AUTO) 5.5 % (1.0-10.0); NEUTROPHILS % (AUTO) 62.3 % (45.0-75.0); PLATELET COUNT 205 K/UL (150-450); RED BLOOD COUNT 4.56 M/UL (4.20-5.40); RED CELL DISTRIBUTION WIDTH 13.8 % (11.6-14.8); WHITE BLOOD COUNT 5.2 K/UL (4.8-10.8)
[2017-10-06 09:20] LABS: INR 0.9 (0.9-1.1)
[2017-10-06 09:47] LABS: ALANINE AMINOTRANSFERASE 277 U/L (12-78); ALBUMIN 3.3 G/DL (3.4-5.0); ALBUMIN/GLOBULIN RATIO 0.7 (1.0-2.7); ALKALINE PHOSPHATASE 198 U/L (46-116); ANION GAP 15 mmol/L (5-15); ASPARTATE AMINO TRANSFERASE 81 U/L (15-37); BILIRUBIN,TOTAL 1.9 MG/DL (0.2-1.0); BLOOD UREA NITROGEN 12 mg/dL (7-18); CARBON DIOXIDE 20 MMOL/L (21-32); CHLORIDE 103 MMOL/L (98-107); POTASSIUM 4.5 MMOL/L (3.5-5.1); SODIUM 138 MMOL/L (136-145)
[2017-10-06 09:55] LABS: BILIRUBIN,DIRECT 0.8 MG/DL (0.0-0.3)
--- NOTE | 2017-10-06 10:14 | GI Progress Note ---
Assessment/Plan Problems: (1) Acute gallstone pancreatitis ICD Codes: K85.10 - Biliary acute pancreatitis without necrosis or infection SNOMED: 439756518 (2) Pancreatitis ICD Codes: K85.90 - Acute pancreatitis without necrosis or infection, unspecified SNOMED: 39642080 (3) Intractable nausea and vomiting ICD Codes: R11.2 - Nausea with vomiting, unspecified SNOMED: 060213495 Status: unchanged Status Narrative Discussed with Dr. Jessica. Assessment/Plan MRCP reviewed >> - Common bile duct measures at most 5 to 6 mm on this exam (previously measured 8 mm on the ultrasound). There is mild tapering of signal in the expected region of the sphincter of Oddi. No definite intraluminal filling defect or meniscus sign is seen to suggest choledocholithiasis. - Mildly prominent pancreas likely related to known pancreatitis. defer ERCP >> fu surgical recs trend LFTs, lipase pain mgmt maintain NPO + IVFs fu labs Discussed with Dr. Jessica. Thank you for this patient referral, we will follow. Subjective Subjective denies pain Objective Last 24 Hour Vital Signs Date Time Temp Pulse Resp B/P (MAP) Pulse Ox O2 Delivery O2 Flow Rate FiO2 10/06/17 08:00 97.7 72 20 106/68 97 Room Air 97.7 10/06/17 08:00 77 10/06/17 04:00 97.9 61 20 104/65 97 Room Air 97.9 10/06/17 04:00 57 10/06/17 00:00 62 10/06/17 00:00 98.8 84 20 110/71 96 Room Air 98.8 10/05/17 20:00 98.3 74 20 118/75 96 Room Air 98.3 10/05/17 20:00 70 10/05/17 16:05 97.5 72 18 106/69 97 Room Air 97.5 10/05/17 15:22 72 10/05/17 12:00 97.7 68 18 110/72 97 Room Air 97.7 10/05/17 11:40 81 Intake and Output 10/05/17 10/06/17 19:00 07:00 Intake Total 322.5 ml 875 ml Balance 322.5 ml 875 ml Intake IV Total 322.5 ml 875 ml # Voids 3 Laboratory Tests Test 10/06/17 07:55 White Blood Count 5.2 K/UL (4.8-10.8) Red Blood Count 4.56 M/UL (4.20-5.40) Hemoglobin 13.1 G/DL (12.0-16.0) Hematocrit 40.6 % (37.0-47.0) Mean Corpuscular Volume 89 FL (80-99) Mean Corpuscular Hemoglobin 28.7 PG (27.0-31.0) Mean Corpuscular Hemoglobin Concent 32.3 G/DL (32.0-36.0) Red Cell Distribution Width 13.8 % (11.6-14.8) Platelet Count 205 K/UL (150-450) Mean Platelet Volume 7.9 FL (6.5-10.1) Neutrophils (%) (Auto) 62.3 % (45.0-75.0) Lymphocytes (%) (Auto) 30.5 % (20.0-45.0) Monocytes (%) (Auto) 5.5 % (1.0-10.0) Eosinophils (%) (Auto) 1.0 % (0.0-3.0) Basophils (%) (Auto) 0.7 % (0.0-2.0) Prothrombin Time 9.6 SEC (9.30-11.50) Prothromb Time International Ratio 0.9 (0.9-1.1) Activated Partial Thromboplast Time 29 SEC (23-33) Sodium Level 138 MMOL/L (136-145) Potassium Level 4.5 MMOL/L (3.5-5.1) Chloride Level 103 MMOL/L (98-107) Carbon Dioxide Level 20 MMOL/L (21-32) L Anion Gap 15 mmol/L (5-15) Blood Urea Nitrogen 12 mg/dL (7-18) Creatinine 1.0 MG/DL (0.55-1.30) Estimat Glomerular Filtration Rate > 60 mL/min (>60) Glucose Level 71 MG/DL (74-106) L Calcium Level 9.0 MG/DL (8.5-10.1) Total Bilirubin 1.9 MG/DL (0.2-1.0) H Direct Bilirubin 0.8 MG/DL (0.0-0.3) H Aspartate Amino Transf (AST/SGOT) 81 U/L (15-37) H Alanine Aminotransferase (ALT/SGPT) 277 U/L (12-78) H Alkaline Phosphatase 198 U/L (46-116) H Total Protein 7.9 G/DL (6.4-8.2) Albumin 3.3 G/DL (3.4-5.0) L Globulin 4.6 g/dL Albumin/Globulin Ratio 0.7 (1.0-2.7) L Lipase 511 U/L (73-393) H Height (Feet): 5 Height (Inches): 8.00 Weight (Pounds): 155 General Appearance: WD/WN, no apparent distress, alert Cardiovascular: normal rate Respiratory/Chest: normal breath sounds, no respiratory distress Abdominal Exam: normal bowel sounds, non tender, soft Extremities: normal range of motion, non-tender Luís Day NP October 06, 2017 10:14
--- NOTE | 2017-10-06 11:26 | General Surgery Progress Note ---
General Surgery-Progress Note Subjective Symptoms: improved, pain absent Additional Comments no acute events. MRI reviewed. labs improved Objective Last 24 Hour Vital Signs Date Time Temp Pulse Resp B/P (MAP) Pulse Ox O2 Delivery O2 Flow Rate FiO2 10/06/17 08:00 97.7 72 20 106/68 97 Room Air 97.7 10/06/17 08:00 77 10/06/17 04:00 97.9 61 20 104/65 97 Room Air 97.9 10/06/17 04:00 57 10/06/17 00:00 62 10/06/17 00:00 98.8 84 20 110/71 96 Room Air 98.8 10/05/17 20:00 98.3 74 20 118/75 96 Room Air 98.3 10/05/17 20:00 70 10/05/17 16:05 97.5 72 18 106/69 97 Room Air 97.5 10/05/17 15:22 72 10/05/17 12:00 97.7 68 18 110/72 97 Room Air 97.7 10/05/17 11:40 81 I&O Intake and Output 10/05/17 10/06/17 19:00 07:00 Intake Total 322.5 ml 875 ml Balance 322.5 ml 875 ml Intake IV Total 322.5 ml 875 ml # Voids 3 Drains: none Cardiovascular: RSR Respiratory: clear Abdomen: soft, flat, non-tender, present bowel sounds Extremities: no edema, no tenderness, no cyanosis Laboratory Tests Test 10/06/17 07:55 White Blood Count 5.2 K/UL (4.8-10.8) Red Blood Count 4.56 M/UL (4.20-5.40) Hemoglobin 13.1 G/DL (12.0-16.0) Hematocrit 40.6 % (37.0-47.0) Mean Corpuscular Volume 89 FL (80-99) Mean Corpuscular Hemoglobin 28.7 PG (27.0-31.0) Mean Corpuscular Hemoglobin Concent 32.3 G/DL (32.0-36.0) Red Cell Distribution Width 13.8 % (11.6-14.8) Platelet Count 205 K/UL (150-450) Mean Platelet Volume 7.9 FL (6.5-10.1) Neutrophils (%) (Auto) 62.3 % (45.0-75.0) Lymphocytes (%) (Auto) 30.5 % (20.0-45.0) Monocytes (%) (Auto) 5.5 % (1.0-10.0) Eosinophils (%) (Auto) 1.0 % (0.0-3.0) Basophils (%) (Auto) 0.7 % (0.0-2.0) Prothrombin Time 9.6 SEC (9.30-11.50) Prothromb Time International Ratio 0.9 (0.9-1.1) Activated Partial Thromboplast Time 29 SEC (23-33) Sodium Level 138 MMOL/L (136-145) Potassium Level 4.5 MMOL/L (3.5-5.1) Chloride Level 103 MMOL/L (98-107) Carbon Dioxide Level 20 MMOL/L (21-32) L Anion Gap 15 mmol/L (5-15) Blood Urea Nitrogen 12 mg/dL (7-18) Creatinine 1.0 MG/DL (0.55-1.30) Estimat Glomerular Filtration Rate > 60 mL/min (>60) Glucose Level 71 MG/DL (74-106) L Calcium Level 9.0 MG/DL (8.5-10.1) Total Bilirubin 1.9 MG/DL (0.2-1.0) H Direct Bilirubin 0.8 MG/DL (0.0-0.3) H Aspartate Amino Transf (AST/SGOT) 81 U/L (15-37) H Alanine Aminotransferase (ALT/SGPT) 277 U/L (12-78) H Alkaline Phosphatase 198 U/L (46-116) H Total Protein 7.9 G/DL (6.4-8.2) Albumin 3.3 G/DL (3.4-5.0) L Globulin 4.6 g/dL Albumin/Globulin Ratio 0.7 (1.0-2.7) L Lipase 511 U/L (73-393) H Plan Problems: (1) Acute gallstone pancreatitis Assessment & Plan: 37 year old female with acute gallstone pancreatitis. afebrile, HD stable, no leukocytosis, elevated total and direct bilirubin, elevated LFT's and lipase. labs improving. pain resolved. potentially passed stone. MRCP reviewed. Gina turk with [facility] today thank you for this consultation. will follow with recs. Espinoza Boone October 06, 2017 11:26
[2017-10-06] MEDS ORDERED: Lidocaine 1% 10mg/ml/Epi 0.005mg/ml 30ml vial INJ ONE (13:07)
--- NOTE | 2017-10-06 13:13 | Infectious Diseases Prog Note ---
Assessment/Plan Assessment/Plan A; Gallstone pancreatitis Elevated transaminase & Bilirubin P; Continue Zosyn Will havw cholecystectomy Subjective ROS Limited/Unobtainable: No Constitutional: Reports: no symptoms Respiratory: Reports: no symptoms Cardiovascular: Reports: no symptoms Gastrointestinal/Abdominal: Reports: no symptoms Genitourinary: Reports: no symptoms Allergies: Coded Allergies: BACITRACIN (Verified Allergy, Unknown, 08/20/16) CINNAMON (Verified Allergy, Unknown, 08/20/16) COCONUT (Verified Allergy, Unknown, 08/20/16) METRONIDAZOLE (Verified Allergy, Unknown, 08/20/16) NEOMYCIN (Verified Allergy, Unknown, 08/20/16) Objective Vital Signs Last 24 Hour Vital Signs Date Time Temp Pulse Resp B/P (MAP) Pulse Ox O2 Delivery O2 Flow Rate FiO2 10/06/17 12:05 97.7 76 20 113/67 96 Room Air 97.7 10/06/17 12:00 94 10/06/17 08:00 97.7 72 20 106/68 97 Room Air 97.7 10/06/17 08:00 77 10/06/17 04:00 97.9 61 20 104/65 97 Room Air 97.9 10/06/17 04:00 57 10/06/17 00:00 62 10/06/17 00:00 98.8 84 20 110/71 96 Room Air 98.8 10/05/17 20:00 98.3 74 20 118/75 96 Room Air 98.3 10/05/17 20:00 70 10/05/17 16:05 97.5 72 18 106/69 97 Room Air 97.5 10/05/17 15:22 72 Height (Feet): 5 Height (Inches): 8.00 Weight (Pounds): 155 General Appearance: no acute distress HEENT: mucous membranes moist Respiratory/Chest: normal breath sounds Cardiovascular: normal rate Abdomen: soft, non tender Extremities: no edema Neurologic/Psychiatric: alert, oriented x 3, responsive Laboratory Tests Test 10/06/17 07:55 White Blood Count 5.2 K/UL (4.8-10.8) Red Blood Count 4.56 M/UL (4.20-5.40) Hemoglobin 13.1 G/DL (12.0-16.0) Hematocrit 40.6 % (37.0-47.0) Mean Corpuscular Volume 89 FL (80-99) Mean Corpuscular Hemoglobin 28.7 PG (27.0-31.0) Mean Corpuscular Hemoglobin Concent 32.3 G/DL (32.0-36.0) Red Cell Distribution Width 13.8 % (11.6-14.8) Platelet Count 205 K/UL (150-450) Mean Platelet Volume 7.9 FL (6.5-10.1) Neutrophils (%) (Auto) 62.3 % (45.0-75.0) Lymphocytes (%) (Auto) 30.5 % (20.0-45.0) Monocytes (%) (Auto) 5.5 % (1.0-10.0) Eosinophils (%) (Auto) 1.0 % (0.0-3.0) Basophils (%) (Auto) 0.7 % (0.0-2.0) Prothrombin Time 9.6 SEC (9.30-11.50) Prothromb Time International Ratio 0.9 (0.9-1.1) Activated Partial Thromboplast Time 29 SEC (23-33) Sodium Level 138 MMOL/L (136-145) Potassium Level 4.5 MMOL/L (3.5-5.1) Chloride Level 103 MMOL/L (98-107) Carbon Dioxide Level 20 MMOL/L (21-32) L Anion Gap 15 mmol/L (5-15) Blood Urea Nitrogen 12 mg/dL (7-18) Creatinine 1.0 MG/DL (0.55-1.30) Estimat Glomerular Filtration Rate > 60 mL/min (>60) Glucose Level 71 MG/DL (74-106) L Calcium Level 9.0 MG/DL (8.5-10.1) Total Bilirubin 1.9 MG/DL (0.2-1.0) H Direct Bilirubin 0.8 MG/DL (0.0-0.3) H Aspartate Amino Transf (AST/SGOT) 81 U/L (15-37) H Alanine Aminotransferase (ALT/SGPT) 277 U/L (12-78) H Alkaline Phosphatase 198 U/L (46-116) H Total Protein 7.9 G/DL (6.4-8.2) Albumin 3.3 G/DL (3.4-5.0) L Globulin 4.6 g/dL Albumin/Globulin Ratio 0.7 (1.0-2.7) L Lipase 511 U/L (73-393) H Current Medications Medications (Trade) Dose Ordered Sig/Ajcob Route PRN Reason Start Time Stop Time Status Last Admin Dose Admin Acetaminophen (Tylenol) 500 mg Q6HR PRN ORAL Mild Pain/Temp > 100.5 10/04/17 22:00 11/03/17 21:59 Al Hydroxide/Mg Hydroxide (Mylanta II) 30 ml Q6H PRN ORAL dyspepsia 10/04/17 20:45 11/03/17 20:44 Dextrose (Dextrose 50%) 25 ml STAT PRN IV Hypoglycemia 10/04/17 20:45 11/03/17 20:44 Dextrose (Dextrose 50%) 50 ml STAT PRN IV Hypoglycemia 10/04/17 20:45 11/03/17 20:44 Famotidine (Pepcid I.v.) 20 mg Q12HR IVP 10/04/17 22:00 11/03/17 21:59 10/06/17 09:12 Ondansetron HCl (Zofran) 4 mg Q6H PRN IVP Nausea & Vomiting 10/04/17 20:45 11/03/17 20:44 Piperacillin Sod/ Tazobactam Sod 3.375 gm/Dextrose 110 ml @ 27.5 mls/hr EVERY 8 HOURS IVPB 10/04/17 22:30 10/09/17 22:29 10/06/17 06:25 Sodium Chloride 1,000 ml @ 125 mls/hr Q8H IV 10/05/17 20:45 11/04/17 20:44 10/06/17 12:51 BRANT IBANEZ October 06, 2017 13:13
[2017-10-06] MEDS ORDERED: Propofol 200mg/20ml IV ONE (13:33)
[2017-10-06] MEDS ORDERED: Lidocaine 1% MPF 10mg/ml 5ml ONE (13:33)
[2017-10-06] MEDS ORDERED: Sodium Chloride 10ml vial INJ ONE (13:33)
[2017-10-06] MEDS ORDERED: fentaNYL 100 mcg/2 mL IV ONE (13:41)
[2017-10-06] MEDS ORDERED: DiphenhydrAMINE 50mg/ml Inj IVP PRN (13:45)
[2017-10-06] MEDS ORDERED: HYDROcodone/Acetamin 7.5/325 tab ORAL PRN (13:45)
[2017-10-06] MEDS ORDERED: Norco 5mg/325mg tab ORAL PRN ×2 (13:45→17:15)
[2017-10-06] MEDS ORDERED: oxyCODONE HCL/Acetaminophen 5/325mg ORAL PRN (13:45)
--- NOTE | 2017-10-06 13:54 | Anethesia Preoperative Eval ---
Anesthesia Pre-op PMH/ROS General Date of Evaluation: October 06, 2017 Time of Evaluation: 13:56 Anesthesiologist: Kaelyn ASA Score: ASA 1 Mallampati Score Class I : Soft palate, uvula, fauces, pillars visible Class II: Soft palate, uvula, fauces visible Class III: Soft palate, base of uvula visible Class IV: Only hard plate visible Mallampati Classification: Class I Surgeon: Paige Diagnosis: Cholelithiasis Surgical Procedure: Laproscopic Cholecystectomy Anesthesia History: none Family History: no anesthesia problems Allergies: Coded Allergies: BACITRACIN (Verified Allergy, Unknown, 08/20/16) CINNAMON (Verified Allergy, Unknown, 08/20/16) COCONUT (Verified Allergy, Unknown, 08/20/16) METRONIDAZOLE (Verified Allergy, Unknown, 08/20/16) NEOMYCIN (Verified Allergy, Unknown, 08/20/16) Medications: see eMAR Past Medical History Gastrointestinal/Genitourinary: Reports: other - Gallse pancreatitis Anesthesia Pre-op Phys. Exam Physician Exam Last Vital Signs Date Time Temp Pulse Resp B/P (MAP) Pulse Ox O2 Delivery O2 Flow Rate FiO2 10/06/17 12:05 97.7 76 20 113/67 96 Room Air 97.7 Constitutional: NAD Neurologic: CN 2-12 intact Cardiovascular: RRR Respiratory: CTA Gastrointestinal: S/NT/ND Airway Exam Mallampati Score: Class I MO: full ROM: full Teeth: intact Anesthesia Pre-op A/P Labs Hematology Test 10/06/17 07:55 White Blood Count 5.2 K/UL (4.8-10.8) Red Blood Count 4.56 M/UL (4.20-5.40) Hemoglobin 13.1 G/DL (12.0-16.0) Hematocrit 40.6 % (37.0-47.0) Mean Corpuscular Volume 89 FL (80-99) Mean Corpuscular Hemoglobin 28.7 PG (27.0-31.0) Mean Corpuscular Hemoglobin Concent 32.3 G/DL (32.0-36.0) Red Cell Distribution Width 13.8 % (11.6-14.8) Platelet Count 205 K/UL (150-450) Mean Platelet Volume 7.9 FL (6.5-10.1) Neutrophils (%) (Auto) 62.3 % (45.0-75.0) Lymphocytes (%) (Auto) 30.5 % (20.0-45.0) Monocytes (%) (Auto) 5.5 % (1.0-10.0) Eosinophils (%) (Auto) 1.0 % (0.0-3.0) Basophils (%) (Auto) 0.7 % (0.0-2.0) Coagulation Test 10/06/17 07:55 Prothrombin Time 9.6 SEC (9.30-11.50) Prothromb Time International Ratio 0.9 (0.9-1.1) Activated Partial Thromboplast Time 29 SEC (23-33) Chemistry Test 10/06/17 07:55 Sodium Level 138 MMOL/L (136-145) Potassium Level 4.5 MMOL/L (3.5-5.1) Chloride Level 103 MMOL/L (98-107) Carbon Dioxide Level 20 MMOL/L (21-32) L Anion Gap 15 mmol/L (5-15) Blood Urea Nitrogen 12 mg/dL (7-18) Creatinine 1.0 MG/DL (0.55-1.30) Estimat Glomerular Filtration Rate > 60 mL/min (>60) Glucose Level 71 MG/DL (74-106) L Calcium Level 9.0 MG/DL (8.5-10.1) Total Bilirubin 1.9 MG/DL (0.2-1.0) H Direct Bilirubin 0.8 MG/DL (0.0-0.3) H Aspartate Amino Transf (AST/SGOT) 81 U/L (15-37) H Alanine Aminotransferase (ALT/SGPT) 277 U/L (12-78) H Alkaline Phosphatase 198 U/L (46-116) H Total Protein 7.9 G/DL (6.4-8.2) Albumin 3.3 G/DL (3.4-5.0) L Globulin 4.6 g/dL Albumin/Globulin Ratio 0.7 (1.0-2.7) L Lipase 511 U/L (73-393) H Risk Assessment & Plan Assessment: ASA 1 Plan: GA, BIS, GlideScope Status Change Before Surgery: No Pre-Antibiotics Dru Grams Ancef IV Given Within 1 Hr of Incision: Yes Time Given: 14:06 Harvinder Art MD October 06, 2017 13:54
--- NOTE | 2017-10-06 13:55 | Immediate Post-Op Evaluation ---
Immediate Post-Op Evalulation Immediate Post-Op Evalulation Procedure: Laproscopic Cholecystectomy Date of Evaluation: October 06, 2017 Time of Evaluation: 15:40 IV Fluids: 700 LR Blood Products: 0 Estimated Blood Loss: 0 Urinary Output: 0 Blood Pressure Systolic: 127 Blood Pressure Diastolic: 78 Pulse Rate: 84 Respiratory Rate: 16 O2 Sat by Pulse Oximetry: 100 Temperature (Fahrenheit): 98.2 Pain Score (1-10): 2 Nausea: No Vomiting: No Complications 0 Patient Status: awake, reacts, patent, extubated, none Hydration Status: adequate Dru Grams Ancef IV Given Within 1 Hr of Incision: Yes Time Given: 14:06 Harvinder Art MD October 06, 2017 13:55
[2017-10-06] MEDS ORDERED: Iothalamate Meglumine 60% 30ML INJ ONE (14:00)
[2017-10-06] MEDS ORDERED: NS Irrig 1000ml IRRIG ONE (14:00)
--- NOTE | 2017-10-06 14:00 | History and Physical Report ---
NOTE: POOR AUDIO HISTORY OF PRESENT ILLNESS: The patient is a 31-year-old female who comes in and admitted for pancreatitis. The patient has been complaining of abdominal pain that radiates to the right flank side and the back for about 1 week to 10 days, however, it got worse in the last 3-4 days. The patient also has multiple vomiting. No hematemesis. The patient . The patient denies any lower extremity pain, fevers, chills, or cough. PAST MEDICAL HISTORY: GERD. PAST SURGICAL HISTORY: Right arm surgery and left leg wound surgery. ALLERGIES: To , bacitracin, coconut milk, Flagyl, and neomycin. MEDICATIONS: . FAMILY HISTORY: Noncontributory. SOCIAL HISTORY: Denies smoking, alcohol, or illicit drugs. REVIEW OF SYSTEMS: HEENT: Denies headaches. RESPIRATORY: Denies shortness of breath. Denies cough. CARDIOVASCULAR: No chest pain or orthopnea. GASTROINTESTINAL: Reports abdominal pain radiating to the right side of the back for about 10 days and associated with vomiting. No hematemesis. No constipation. EXTREMITIES: She does have pain allover. feels weak. PHYSICAL EXAMINATION: VITAL SIGNS: Temperature 97.7 degrees, pulse 72, and blood pressure 112/69. HEENT: PERRLA. NECK: Supple. No lymphadenopathy. CHEST: Clear to auscultation. GASTROINTESTINAL: She does have tenderness. No rebound. No organomegaly. Abdomen is soft. EXTREMITIES: No edema. NEUROLOGIC: Reflexes equal on both sides. Moves all four extremities. LABORATORY AND DIAGNOSTIC DATA: WBC of 6.7, hemoglobin 13.1, and platelets of 236,000. Sodium 137, potassium 3.8, chloride 102, BUN of 7, creatinine 0.8, and glucose of 109. AST of 185 and ALT of 397. Total bilirubin was 7.4. ASSESSMENT AND PLAN: The patient is admitted for elevated LFTs. I have consulted basically Dr. Leroy, Dr. Jessica and Dr. Plummer for IV dehydration as well as for the treatment of the infectious process and also the treatment of gallstone pancreatitis and to rule out an infectious process. Ali Marcelina Dickerson DR: WILEY JOB#: [id number] CC:
[2017-10-06] MEDS ORDERED: fentaNYL 100 mcg/2 mL IV PRN (14:24)
[2017-10-06] MEDS ORDERED: Midazolam 2mg/2ml Inj IVP PRN (14:26)
[2017-10-06] MEDS ORDERED: Metoclopramide 10mg/2ml Inj IVP PRN (14:27)
[2017-10-06] MEDS ORDERED: Metoprolol 5mg/5ml Inj ONE (14:32)
[2017-10-06] MEDS ORDERED: LR 1000ml 1,000 ML IVLG SCH (14:45)
[2017-10-06] MEDS ORDERED: Atropine Inj 1mg/10ml Syr IV PRN (14:45)
[2017-10-06] MEDS ORDERED: Ketorolac 30mg Inj IV PRN ×2 (14:47)
[2017-10-06] MEDS ORDERED: LORazepam Inj 2mg/ml 1ml IV PRN (14:48)
[2017-10-06] MEDS ORDERED: Labetalol 5mg/ml 20ml vial IV PRN (14:48)
[2017-10-06] MEDS ORDERED: Acetaminophen (Non formulary) 100 ML IV SCH (15:00)
[2017-10-06] MEDS ORDERED: Glycopyrrolate 0.2mg/ml 1ml Vial ONE (15:07)
--- NOTE | 2017-10-06 15:37 | Brief Operative Note ---
Immediate Post Operative Note Operative Note Pre-op Diagnosis: gallstone pancreatitis Procedure: laparoscopic cholecystectomy with intraoperative cholangiogram Findings: consistent w/pre-op dx studies Surgeon: yury Research Physiologist: tamara Anesthesiologist: sarah Anesthesia: general Specimen: yes Complications: none Condition: stable Fluids: see records Estimated Blood Loss: minimal Drains: none Implant(s) used?: No Espinoza Boone October 06, 2017 15:36
[2017-10-06] MEDS ORDERED: Morphine Sulfate 4mg/ml Inj IVP PRN (15:45)
--- NOTE | 2017-10-06 16:00 | Diagnostic Imaging Report ---
Indication: T-tube cholangiogram in the operating room cholecystectomy. Abdominal pain Comparison: None Findings: 3 fluoroscopic obtained images showing contrast injection of the biliary ducts with opacification of the duodenum indicating patency. No contrast extravasation seen. IMPRESSION: Unremarkable T-tube cholangiogram. No obstruction or leak
[2017-10-06] MEDS ORDERED: Milk of Magnesia 30ml Ud ORAL PRN (17:11)
[2017-10-06] MEDS: Ketorolac 30mg Inj IV PRN (17:50)
[2017-10-06] MEDS: Docusate 100mg cap ORAL SCH (18:00)
[2017-10-06] MEDS: HYDROcodone/Acetamin 10/325 tab ORAL PRN (21:23)
--- NOTE | 2017-10-06 21:34 | General Progress Note ---
Assessment/Plan Problem List: (1) Pancreatitis ICD Codes: K85.90 - Acute pancreatitis without necrosis or infection, unspecified SNOMED: 40739378 (2) Pancreatitis ICD Codes: K85.90 - Acute pancreatitis without necrosis or infection, unspecified SNOMED: 14019116 (3) Acute gallstone pancreatitis ICD Codes: K85.10 - Biliary acute pancreatitis without necrosis or infection SNOMED: 977475119 Status: progressing Assessment/Plan afebrile gallstone pancreatitis is improving diet per gi abdominal pain is improving no vomit Subjective Gastrointestinal/Abdominal: Reports: abdominal pain Allergies: Coded Allergies: BACITRACIN (Verified Allergy, Unknown, 08/20/16) CINNAMON (Verified Allergy, Unknown, 08/20/16) COCONUT (Verified Allergy, Unknown, 08/20/16) METRONIDAZOLE (Verified Allergy, Unknown, 08/20/16) NEOMYCIN (Verified Allergy, Unknown, 08/20/16) Objective Last 24 Hour Vital Signs Date Time Temp Pulse Resp B/P (MAP) Pulse Ox O2 Delivery O2 Flow Rate FiO2 10/06/17 20:00 98.9 83 20 132/77 99 Nasal Cannula 3.0 98.9 10/06/17 20:00 73 10/06/17 18:20 97.9 10/06/17 17:50 97.9 10/06/17 17:00 97.9 16 143/83 100 Nasal Cannula 3.0 97.9 10/06/17 16:37 97.3 10/06/17 16:30 98.4 75 16 151/81 100 Nasal Cannula 3.0 98.4 10/06/17 16:20 79 19 139/79 100 Nasal Cannula 3.0 10/06/17 16:15 75 15 130/76 100 Nasal Cannula 3.0 10/06/17 16:07 97.3 10/06/17 16:00 77 18 154/81 100 Nasal Cannula 3.0 10/06/17 15:50 72 15 143/79 100 Nasal Cannula 3.0 10/06/17 15:40 79 17 134/83 100 Nasal Cannula 3.0 10/06/17 15:35 77 20 130/75 100 Simple Mask 6.0 10/06/17 15:29 98.2 88 16 128/74 100 Simple Mask 6.0 98.2 10/06/17 15:28 208.8 84 16 100 10/06/17 12:05 97.7 76 20 113/67 96 Room Air 97.7 10/06/17 12:00 94 10/06/17 08:00 97.7 72 20 106/68 97 Room Air 97.7 10/06/17 08:00 77 10/06/17 04:00 97.9 61 20 104/65 97 Room Air 97.9 10/06/17 04:00 57 10/06/17 00:00 62 10/06/17 00:00 98.8 84 20 110/71 96 Room Air 98.8 Intake and Output 10/05/17 10/06/17 19:00 07:00 Intake Total 322.5 ml 875 ml Balance 322.5 ml 875 ml Intake IV Total 322.5 ml 875 ml # Voids 3 Laboratory Tests 10/06/17 07:55: White Blood Count 5.2, Red Blood Count 4.56, Hemoglobin 13.1, Hematocrit 40.6, Mean Corpuscular Volume 89, Mean Corpuscular Hemoglobin 28.7, Mean Corpuscular Hemoglobin Concent 32.3, Red Cell Distribution Width 13.8, Platelet Count 205, Mean Platelet Volume 7.9, Neutrophils (%) (Auto) 62.3, Lymphocytes (%) (Auto) 30.5, Monocytes (%) (Auto) 5.5, Eosinophils (%) (Auto) 1.0, Basophils (%) (Auto ) 0.7, Prothrombin Time 9.6, Prothromb Time International Ratio 0.9, Activated Partial Thromboplast Time 29, Sodium Level 138, Potassium Level 4.5, Chloride Level 103, Carbon Dioxide Level 20L, Anion Gap 15, Blood Urea Nitrogen 12, Creatinine 1.0, Estimat Glomerular Filtration Rate > 60, Glucose Level 71L, Calcium Level 9.0, Total Bilirubin 1.9H, Direct Bilirubin 0.8H, Aspartate Amino Transf (AST/SGOT) 81H, Alanine Aminotransferase (ALT/SGPT) 277H, Alkaline Phosphatase 198H, Total Protein 7.9, Albumin 3.3L, Globulin 4.6, Albumin/ Globulin Ratio 0.7L, Lipase 511H Height (Feet): 5 Height (Inches): 8.00 Weight (Pounds): 155 Cardiovascular: normal rate Respiratory/Chest: lungs clear Abdomen: soft Britney Dickerson MD October 06, 2017 21:34
--- NOTE | 2017-10-06 22:45 | Operative Note - Dictated ---
DATE OF OPERATION: 10/06/2017 PREOPERATIVE DIAGNOSIS: Gallstone pancreatitis. POSTOPERATIVE DIAGNOSIS: Gallstone pancreatitis. OPERATION PERFORMED: Laparoscopic cholecystectomy with intraoperative cholangiogram. ATTENDING SURGEON: Espinoza Boone M.D. PROGRAM REP: Sergio Del Castillo M.D. ANESTHESIA: General MOLD F[employer]ER PLASTIC DOLLS. ANESTHESIOLOGIST: Harvinder Art M.D. ESTIMATED BLOOD LOSS: Minimal. IV FLUIDS: Please see anesthesia records. COMPLICATIONS: None. DRAINS: None. SPECIMENS: Gallbladder with stones, sent to pathology for review. WOUND CLASSIFICATION: Class III. IV ANTIBIOTICS: The patient on scheduled IV Zosyn prior to entering the operating room. COUNTS: Sponge and needle count correct x2. INDICATIONS FOR PROCEDURE: This is a 37-year-old female, who is 10 weeks presented to the emergency department complaining of worsening epigastric abdominal pain. Upon evaluation, the patient was noted to have cholelithiasis and hyperbilirubinemia with a total bilirubin of 7.4 and direct bilirubin of 6.0 and transaminitis with elevation of AST, ALT and alkaline phosphatase as well as pancreatitis with a lipase >2000. This is her first episode of gallstone pancreatitis to her knowledge. Over the subsequent days, the patient's hyperbilirubinemia improved as well as her LFTs and resolution of her pancreatitis with her being clinically asymptomatic. MRCP was performed, which identified cholelithiasis, but no definitive evidence to suggest choledocholithiasis with a common bile duct being measured at 5 to 6 mm on the MRCP as compared to 8 mm on the prior ultrasound. No intraluminal filling defects were identified. Given these findings, a laparoscopic cholecystectomy with intraoperative cholangiogram was indicated and recommended. Risks, benefits and alternatives were discussed with the patient in detail who expressed understanding and consented to surgery, which was performed on 10/06/2017. OPERATIVE NOTE: The patient was taken to the operating room and placed on operating table in supine position with all bony prominences well padded. SCDs were placed. Appropriate time-out was taken identifying the patient procedure, operative staff, and surgical staff. Martinez catheter was not inserted given the patient voided prior to entering the operating room. The patient is on scheduled IV antibiotics prior to entering the operating room. General anesthesia was induced and the patient was intubated. The left arm was tucked. The abdomen was prepped and draped in standard surgical fashion. An infraumbilical incision was made using a fresh #11 scalpel and carried down to the fascia with electrocautery and blunt dissection was necessary. The fascia was elevated, incised, and entry into peritoneal cavity was successfully performed using the open Terra technique without complication. A 12 mm Terra trocar was inserted and the abdomen was insufflated to 12 to 15 mmHg. The patient tolerated the insufflation well. The patient was then placed in reverse Trendelenburg with the left side down position. Secondary trocars were placed under direct visualization beginning with a 12 mm epigastric subxiphoid port and two 5 mm right subcostal port sites. No injury from secondary trocar placement under direct visualization identified. The abdomen was then inspected and no abnormalities were noted. The gallbladder was identified and the dome of the gallbladder was grasped using the most lateral port and retracted over the liver. The infundibulum of the gallbladder was then identified and grasped through the midclavicular port and directed towards the appendix, which helped to clearly identify the closed triangle. The peritoneal lining of the gallbladder was dissected out posteriorly than anteriorly until the cystic artery and duct were identified. The cystic artery was identified. After further dissection and identification only two structures entering into the gallbladder where the cystic duct and artery and the critical view was obtained. The cystic artery was then doubly ligated and divided. This going remaining structure entering the gallbladder was a cystic duct. At this time, decision was made to perform a cholangiogram. A clip was placed in the cystic duct, a small incision was made using laparoscopic scissors. A cholangiogram catheter was then inserted and directed into the cystic duct. An intraoperative cholangiogram was then performed identifying the cystic duct entering the common bile duct into the right and left bifurcation proximally as well as into the jejunum distally. No filling defects or other abnormalities were noted. The biliary tree was otherwise normal. At this time, the cholangiogram catheter was removed and the cystic duct was doubly clipped. Of note, the cystic duct was noted to be fairly dilated during the procedure and a 12 mm clips did not feel to be completely appropriate and therefore, a laparoscopic PDS endo-loop was placed around the cystic duct and tied to further secure the cystic duct. Following this, the gallbladder was then dissected off the liver bed with electrocautery without complication. The gallbladder was then placed in an endoscopic retrieval bag and removed from the abdomen using the umbilical port site. The gallbladder bed was irrigated and suctioned. The cystic artery and duct were identified with good hemostasis and no leakage of bile. At this time, we began the conclusion of our procedure. The secondary trocar ports were removed under direct visualization without complication. The abdomen was allowed to desufflate. A 12 mm infraumbilical and epigastric port site fascia were closed using a #0 Vicryl [id number] suture. The remaining skin incisions were then closed using a 4-0 Monocryl subcuticular suture. Steri-Strips were applied followed by dressings. The patient tolerated the procedure well, was extubated and taken to the postanesthetic care unit in stable condition. Espinoza Boone M.D. DR: GENARO JOB#: [id number] CC: SELIN
[2017-10-07] VITALS: BP 110/65
[2017-10-07] MEDS: HYDROcodone/Acetamin 10/325 tab ORAL PRN ×2 (02:54→10:59)
[2017-10-07] MEDS: NS w/KCl 20mEq 1,000 ML IV SCH ×2 (04:07→12:45)
[2017-10-07] MEDS: Piperacillin/Tazobactam 3.375 GM in D5W 110 ML IVPB SCH (05:52)
[2017-10-07] MEDS: Ketorolac 30mg Inj IV PRN (06:17)
[2017-10-07 08:00] VITALS: BP 144/72
[2017-10-07 09:01] LABS: ALANINE AMINOTRANSFERASE 190 U/L (12-78); ALBUMIN 2.9 G/DL (3.4-5.0); ALBUMIN/GLOBULIN RATIO 0.7 (1.0-2.7); ALKALINE PHOSPHATASE 152 U/L (46-116); ANION GAP 16 mmol/L (5-15); ASPARTATE AMINO TRANSFERASE 54 U/L (15-37); BILIRUBIN,TOTAL 1.4 MG/DL (0.2-1.0); BLOOD UREA NITROGEN 9 mg/dL (7-18); CALCIUM 8.6 MG/DL (8.5-10.1); CARBON DIOXIDE 18 MMOL/L (21-32); CHLORIDE 104 MMOL/L (98-107); POTASSIUM 4.4 MMOL/L (3.5-5.1); SODIUM 138 MMOL/L (136-145)
[2017-10-07 09:09] LABS: BILIRUBIN,DIRECT 0.6 MG/DL (0.0-0.3)
[2017-10-07] MEDS: Docusate 100mg cap ORAL SCH (09:53)
--- NOTE | 2017-10-07 10:16 | 48 Hour Post Anesthesia Eval ---
Post Anesthesia Evaluation Procedure: Laproscopic Cholecystectomy Date of Evaluation: October 07, 2017 Time of Evaluation: 06:30 Blood Pressure Systolic: 110 0: 65 Pulse Rate: 79 Respiratory Rate: 20 Temperature (Fahrenheit): 98.9 O2 Sat by Pulse Oximetry: 95 Airway: patent Nausea: No Vomiting: No Pain Intensity: 0 Hydration Status: adequate Cardiopulmonary Status: at baseline Mental Status/LOC: patient returned to baseline Post-Anesthesia Complications: 0 Follow-up care needed: N/A - further care as per primary team CATHIE MARTINEZ M.D. October 07, 2017 10:16
--- NOTE | 2017-10-07 10:23 | GI Progress Note ---
Assessment/Plan Problems: (1) Acute gallstone pancreatitis ICD Codes: K85.10 - Biliary acute pancreatitis without necrosis or infection SNOMED: 827841703 (2) Pancreatitis ICD Codes: K85.90 - Acute pancreatitis without necrosis or infection, unspecified SNOMED: 11785245 (3) Intractable nausea and vomiting ICD Codes: R11.2 - Nausea with vomiting, unspecified SNOMED: 651957487 Status: stable Status Narrative Discussed with Dr. Jessica. Assessment/Plan MRCP reviewed >> - Common bile duct measures at most 5 to 6 mm on this exam (previously measured 8 mm on the ultrasound). There is mild tapering of signal in the expected region of the sphincter of Oddi. No definite intraluminal filling defect or meniscus sign is seen to suggest choledocholithiasis. - Mildly prominent pancreas likely related to known pancreatitis. s/p Laparoscopic cholecystectomy with intraoperative cholangiogram. diet per surgery trend LFTs, lipase pain mgmt zofran prn fu labs The patient was seen and examined at bedside and all new and available data was reviewed in the patients chart. I agree with the above findings, impression and plan. (Patient seen earlier today. Signature stamp does not reflect patient encounter time.). - Dagoberto Jessica MD Subjective Subjective denies pain Objective Last 24 Hour Vital Signs Date Time Temp Pulse Resp B/P (MAP) Pulse Ox O2 Delivery O2 Flow Rate FiO2 10/07/17 10:21 210.0 79 20 95 10/07/17 08:00 78 10/07/17 08:00 98.0 80 16 144/72 96 Room Air 98.0 10/07/17 04:00 85 10/07/17 00:00 79 10/07/17 00:00 98.9 99 20 110/65 95 Room Air 98.9 10/06/17 20:00 98.9 83 20 132/77 99 Nasal Cannula 3.0 98.9 10/06/17 20:00 73 10/06/17 18:20 97.9 10/06/17 17:50 97.9 10/06/17 17:00 97.9 16 143/83 100 Nasal Cannula 3.0 97.9 10/06/17 16:37 97.3 10/06/17 16:30 98.4 75 16 151/81 100 Nasal Cannula 3.0 98.4 10/06/17 16:20 79 19 139/79 100 Nasal Cannula 3.0 10/06/17 16:15 75 15 130/76 100 Nasal Cannula 3.0 10/06/17 16:07 97.3 10/06/17 16:00 77 18 154/81 100 Nasal Cannula 3.0 10/06/17 15:50 72 15 143/79 100 Nasal Cannula 3.0 10/06/17 15:40 79 17 134/83 100 Nasal Cannula 3.0 10/06/17 15:35 77 20 130/75 100 Simple Mask 6.0 10/06/17 15:29 98.2 88 16 128/74 100 Simple Mask 6.0 98.2 10/06/17 15:28 208.8 84 16 100 10/06/17 12:05 97.7 76 20 113/67 96 Room Air 97.7 10/06/17 12:00 94 Intake and Output 10/06/17 10/07/17 19:00 07:00 Intake Total 860.0 ml 1468.5 ml Balance 860.0 ml 1468.5 ml Intake IV Total 860.0 ml 1468.5 ml # Voids 3 1 Laboratory Tests Test 10/07/17 06:30 Sodium Level 138 MMOL/L (136-145) Potassium Level 4.4 MMOL/L (3.5-5.1) Chloride Level 104 MMOL/L (98-107) Carbon Dioxide Level 18 MMOL/L (21-32) L Anion Gap 16 mmol/L (5-15) H Blood Urea Nitrogen 9 mg/dL (7-18) Creatinine 1.0 MG/DL (0.55-1.30) Estimat Glomerular Filtration Rate > 60 mL/min (>60) Glucose Level 95 MG/DL (74-106) Calcium Level 8.6 MG/DL (8.5-10.1) Total Bilirubin 1.4 MG/DL (0.2-1.0) H Direct Bilirubin 0.6 MG/DL (0.0-0.3) H Aspartate Amino Transf (AST/SGOT) 54 U/L (15-37) H Alanine Aminotransferase (ALT/SGPT) 190 U/L (12-78) H Alkaline Phosphatase 152 U/L (46-116) H Total Protein 7.0 G/DL (6.4-8.2) Albumin 2.9 G/DL (3.4-5.0) L Globulin 4.1 g/dL Albumin/Globulin Ratio 0.7 (1.0-2.7) L Lipase 225 U/L (73-393) Height (Feet): 5 Height (Inches): 8.00 Weight (Pounds): 155 General Appearance: WD/WN, no apparent distress, alert Cardiovascular: normal rate Respiratory/Chest: normal breath sounds, no respiratory distress Abdominal Exam: normal bowel sounds, non tender, soft Extremities: normal range of motion, non-tender Luís Day NP October 07, 2017 10:23
--- NOTE | 2017-10-07 11:30 | Infectious Diseases Prog Note ---
Assessment/Plan Assessment/Plan A; Gallstone pancreatitis Cholelithiasis & Cholecystitis s/p laparoscopic cholecystectomy Elevated transaminase & Bilirubin P; discontinue Zosyn Subjective ROS Limited/Unobtainable: No Respiratory: Reports: no symptoms Cardiovascular: Reports: no symptoms Gastrointestinal/Abdominal: Reports: other - pain in surgical site Allergies: Coded Allergies: BACITRACIN (Verified Allergy, Unknown, 08/20/16) CINNAMON (Verified Allergy, Unknown, 08/20/16) COCONUT (Verified Allergy, Unknown, 08/20/16) METRONIDAZOLE (Verified Allergy, Unknown, 08/20/16) NEOMYCIN (Verified Allergy, Unknown, 08/20/16) Objective Vital Signs Last 24 Hour Vital Signs Date Time Temp Pulse Resp B/P (MAP) Pulse Ox O2 Delivery O2 Flow Rate FiO2 10/07/17 10:59 98.9 10/07/17 10:21 210.0 79 20 95 10/07/17 08:00 78 10/07/17 08:00 98.0 80 16 144/72 96 Room Air 98.0 10/07/17 04:00 85 10/07/17 00:00 79 10/07/17 00:00 98.9 99 20 110/65 95 Room Air 98.9 10/06/17 20:00 98.9 83 20 132/77 99 Nasal Cannula 3.0 98.9 10/06/17 20:00 73 10/06/17 18:20 97.9 10/06/17 17:50 97.9 10/06/17 17:00 97.9 16 143/83 100 Nasal Cannula 3.0 97.9 10/06/17 16:37 97.3 10/06/17 16:30 98.4 75 16 151/81 100 Nasal Cannula 3.0 98.4 10/06/17 16:20 79 19 139/79 100 Nasal Cannula 3.0 10/06/17 16:15 75 15 130/76 100 Nasal Cannula 3.0 10/06/17 16:07 97.3 10/06/17 16:00 77 18 154/81 100 Nasal Cannula 3.0 10/06/17 15:50 72 15 143/79 100 Nasal Cannula 3.0 10/06/17 15:40 79 17 134/83 100 Nasal Cannula 3.0 10/06/17 15:35 77 20 130/75 100 Simple Mask 6.0 10/06/17 15:29 98.2 88 16 128/74 100 Simple Mask 6.0 98.2 10/06/17 15:28 208.8 84 16 100 10/06/17 12:05 97.7 76 20 113/67 96 Room Air 97.7 10/06/17 12:00 94 Height (Feet): 5 Height (Inches): 8.00 Weight (Pounds): 155 General Appearance: no acute distress HEENT: mucous membranes moist Respiratory/Chest: lungs clear Cardiovascular: normal rate Abdomen: other - soft, tender in RUQ Extremities: no edema Neurologic/Psychiatric: alert, oriented x 3, responsive Laboratory Tests Test 10/07/17 06:30 Sodium Level 138 MMOL/L (136-145) Potassium Level 4.4 MMOL/L (3.5-5.1) Chloride Level 104 MMOL/L (98-107) Carbon Dioxide Level 18 MMOL/L (21-32) L Anion Gap 16 mmol/L (5-15) H Blood Urea Nitrogen 9 mg/dL (7-18) Creatinine 1.0 MG/DL (0.55-1.30) Estimat Glomerular Filtration Rate > 60 mL/min (>60) Glucose Level 95 MG/DL (74-106) Calcium Level 8.6 MG/DL (8.5-10.1) Total Bilirubin 1.4 MG/DL (0.2-1.0) H Direct Bilirubin 0.6 MG/DL (0.0-0.3) H Aspartate Amino Transf (AST/SGOT) 54 U/L (15-37) H Alanine Aminotransferase (ALT/SGPT) 190 U/L (12-78) H Alkaline Phosphatase 152 U/L (46-116) H Total Protein 7.0 G/DL (6.4-8.2) Albumin 2.9 G/DL (3.4-5.0) L Globulin 4.1 g/dL Albumin/Globulin Ratio 0.7 (1.0-2.7) L Lipase 225 U/L (73-393) Current Medications Medications (Trade) Dose Ordered Sig/Jacob Route PRN Reason Start Time Stop Time Status Last Admin Dose Admin Acetaminophen (Tylenol) 500 mg Q6HR PRN ORAL Mild Pain/Temp > 100.5 10/04/17 22:00 11/03/17 21:59 Acetaminophen/ Hydrocodone Bitart ([place] 10/325) 1 tab Q4H PRN ORAL Severe Pain (Pain Scale 7-10) 10/06/17 17:15 10/13/17 17:14 10/07/17 10:59 Acetaminophen/ Hydrocodone Bitart ([place] 5/325) 1 tab Q4H PRN ORAL Moderate Pain (Pain Scale 4-6) 10/06/17 17:15 10/13/17 17:14 Al Hydroxide/Mg Hydroxide (Mylanta II) 30 ml Q6H PRN ORAL dyspepsia 10/04/17 20:45 11/03/17 20:44 Dextrose (Dextrose 50%) 25 ml STAT PRN IV Hypoglycemia 10/04/17 20:45 11/03/17 20:44 Dextrose (Dextrose 50%) 50 ml STAT PRN IV Hypoglycemia 10/04/17 20:45 11/03/17 20:44 Docusate Sodium (Colace) 100 mg TWICE A DAY ORAL 10/06/17 18:00 11/05/17 17:59 10/07/17 09:53 Famotidine (Pepcid I.v.) 20 mg Q12HR IVP 10/04/17 22:00 11/03/17 21:59 10/07/17 09:53 Ketorolac Tromethamine (Toradol 30mg) 15 mg Q6H PRN IV BREAKTHRU PAIN 10/06/17 15:45 10/11/17 15:44 10/07/17 06:17 Magnesium Hydroxide (Mom) 30 ml BIDPRN PRN ORAL Constipation 10/06/17 17:11 11/05/17 17:10 Ondansetron HCl (Zofran) 4 mg Q6H PRN IVP Nausea & Vomiting 10/06/17 17:10 11/05/17 17:09 Ondansetron HCl (Zofran) 4 mg Q6H PRN IVP Nausea & Vomiting 10/04/17 20:45 11/03/17 20:44 10/06/17 17:34 Piperacillin Sod/ Tazobactam Sod 3.375 gm/Dextrose 110 ml @ 27.5 mls/hr EVERY 8 HOURS IVPB 10/04/17 22:30 10/09/17 22:29 10/07/17 05:52 Sodium Chloride 1,000 ml @ 125 mls/hr Q8H IV 10/05/17 20:45 11/04/17 20:44 10/07/17 04:07 BRANT IBANEZ October 07, 2017 11:30
--- NOTE | 2017-10-07 11:53 | General Progress Note ---
Progress Note Progress Note Surgery: no acute events. pain controlled. tolerating diet. ambulatory. no n/v/f/c. comfortable. abd soft, nd, bs+, tender at incisions, incision c/d/i. labs improved. POD #1 s/p lap rosalee with IOC for gallstone pancreatitis. recovering -d/c home today -rx written -follow up with me this tuesday in office. information given to patient diet as tolerated. okay to shower. activity as tolerated Espinoza Boone October 07, 2017 11:53
[2017-10-07 12:00] VITALS: BP 141/83
[2017-10-07] MEDS ORDERED: NORCO 5-325 TA1 EACH ORAL (15:22)
[2017-10-07] MEDS ORDERED: COLACE100 MG ORAL (15:24)
[2017-10-07] MEDS ORDERED: Tubing IV Secondary IV ONE (16:02)
[2017-10-07] MEDS ORDERED: 1/2 NS 1000ml IV ONE (16:02)
--- NOTE | 2017-10-10 10:33 | Discharge Summary ---
Discharge Summary Discharge Summary Discharge Summary DATE OF ADMISSION: 10/04/2017 DATE OF DISCHARGE: 2017 REASON FOR ADMISSION: 37 years old female, 10 weeks , presented to emergency department complaining of worsening epigastric abdominal pain. Upon evaluation the patient was noted to have cholelithiasis and hyperbilirubinemia with total bilirubin of 7.4 and direct bilirubin of 6.0 as well as transaminitis with elevation of AST, ALT and alkaline phosphatase. AST 185, ALT 397, alkaline phosphatase 251. Lipase was 2804. MRI of the abdomen revealed cholelithiasis. No definite evidence to suggest acute cholecystitis. Common bile duct 5-6 mm. No definite intra-luminal filling defect was seen to suggest choledocholithiasis. Mildly prominent pancreas likely related to known pancreatitis noted. In ED patient was given Pepcid, Maalox. Patient started on an IV fluids. Pain management was addressed. Patient admitted with diagnosis of intractable nausea and vomiting, pancreatitis, acute gallstone pancreatitis. CONSULTANTS: ID specialist Dr. Héctor Leroy GI specialist surgery [facility] COURSE: Patient admitted to telemetry floor. Surgery, GI and ID consults were requested. Patient was on IV fluids and was kept nothing by mouth. p Patient started on empiric antibiotic. LFT, bilirubin and lipase were closely monitored. Pain management was addressed. Antiemetics provided as needed. After reviewing MRCP by GI specialist, ERCP was was deferred Surgeon closely followed. Patient was scheduled for laparoscopic cholecystectomy with intraoperative cholangiogram which was indicated and recommended in this case. Risks, benefits and alternatives were discussed with the patient in detail. Patient verbalized understanding and consented to surgery. Patient subsequently undergone laparoscopic cholecystectomy with intraoperative cholangiogram on 10/14/2017. Course of recovery was uneventful. Patient slowly started on liquid diet and was advanced as tolerated. LFTs and bilirubin trending down. Lipase down to normal. Pain was controlled. Patient able to tolerate diet. Patient was ambulatory. No nausea, no vomiting , no fever or chills. Abdomen soft with normoactive bowel sounds . Some tender on the incision sites. Incision sites clean ,dry, and intact. Discharge instructions discussed with patient , prescription provided by surgeon . Patient was stable for discharge home FINAL DIAGNOSES: Intractable nausea and vomiting Acute gallstone pancreatitis Elevated transaminase and bilirubin Cholelithiasis and cholecystitis Status post laparoscopic cholecystectomy with intraoperative cholangiogram on DISCHARGE MEDICATIONS: See Medication Reconciliation list. DISCHARGE INSTRUCTIONS: Patient was discharged home. Patient to follow-up with a surgeon as outpatient as recommended by surgeon I have been assigned to dictate discharge summary for this account. I was not involved in the patient's management. Nicole Javed NP October 10, 2017 10:33
== END 2017-10-07 16:03 | disposition home or self-care (01) | DRG 417 ==
LOC: EDBEDREQSVC 16:41 → EDUNIT# 17:35 → EMR 17:35 → 2E 17:58 → EDBEDREQ 18:18
PROC: 0FT44ZZ Resection of Gallbladder, Percutaneous Endoscopic Approach (ICD-10-PCS; principal; 2017-10-06 14:00)
PROC: BF101ZZ Fluoroscopy of Bile Ducts using Low Osmolar Contrast (ICD-10-PCS; principal; 2017-10-06 14:00)
DX: K80.10 Calculus of gallbladder with chronic cholecystitis without obstruction (principal); K85.10 Biliary acute pancreatitis without necrosis or infection; Z88.1 Allergy status to other antibiotic agents; Z88.8 Allergy status to other drugs, medicaments and biological substances; K21.9 Gastro-esophageal reflux disease without esophagitis
CPT/HCPCS: 36415; 74181; 74300; 76700; 80053; 80061; 81003; 81025; 82150; 82248; 83690; 83735; 83880; 84100; 84443; 84550; 85025; 85610; 85730; 93005; 99285; J2405